=== PATIENT | female | born 1930 | race Caucasian/White ===

== ENCOUNTER 2016-08-13 06:55 | Inpatient (IN) | payer OTHER ==
[~2016-08-13 06:55] MED LIST: ceFAZolin 2 GM/DEXTROSE 100 ML IV ONE
[2016-08-13] MEDS ORDERED: LIDOCAINE 1% 2 ML INJ ONE (07:41)
[2016-08-13] MEDS ORDERED: BUPIVACAINE 0.5% 30 ML SDV ONE ×2 (07:47→09:13)
[2016-08-13] MEDS ORDERED: PROPOFOL 200 MG/20 ML VIAL ONE (07:53)
[2016-08-13] MEDS ORDERED: fentaNYL 100 MCG/2 ML INJ ONE ×2 (07:53→11:40)
[2016-08-13] MEDS ORDERED: PROPOFOL/EMULSION 500 MG/50 ML BOTTLE IV ONE (09:08)
--- NOTE | 2016-08-13 09:45 | CPEKG ---
Heart Rate: 73 RR Interval: 822 P-R Interval: 212 QRSD Interval: 78 QT Interval: 424 QTC Interval: 468 P [place]: 74 QRS [place]: 14 T Wave [place]: 48 EKG Severity - NORMAL ECG - EKG Impression: SINUS RHYTHM EKG Impression: UNCHANGED IN COMPARISON TO PRIOR Electronically Signed By: Dev Jones 14-Aug-2016 09:26:15
[2016-08-13] MEDS ORDERED: HYDROmorphONE/DILAUDID 6 MG/30 ML PCA IV PRN (11:11)
[2016-08-13] MEDS ORDERED: NALOXONE HCL 0.4 MG/ML INJ IVP PRN (11:11)
[2016-08-13] MEDS ORDERED: oxyCODONE IR 5 MG TAB PO PRN (11:11)
[2016-08-13] MEDS ORDERED: ACETAMINOPHEN 325 MG TAB PO PRN (11:16)
--- NOTE | 2016-08-13 11:19 | POSTOPPROG ---
Post Op Note Date of Operation: 08/13/16 Surgeon: Owen Samuel Clinique Counter Manager: Marshall Soares de Guzman Anesthesia: GET(General Endotracheal) Pre-op Diagnosis: BKA stump osteomyelitis/chronic wound Procedure: L BKA revision Findings: ulcerated skin, some necrosis, poor blood flow Inf/Abcess present in the surg proc area at time of surgery?: Yes Depth: Deep Incisional (Fascial) EBL: Minimal Complications: none Specimen(s): bone and skin to path and for culture
[2016-08-13] MEDS: HYDROmorphONE/DILAUDID 2 MG TAB PO PRN ×2 (12:39→13:38)
[2016-08-13] MEDS: HYDROmorphONE/DILAUDID 1 MG/ML SYR IVP PRN ×2 (13:48→15:58)
[2016-08-14 06:26] LABS: HEMATOCRIT 26.4 % (38.0-47.0); HEMOGLOBIN 8.4 g/dL (12.6-16.3)
[2016-08-14 06:49] LABS: ANION GAP 7 mEq/L (8-16); CALCIUM 8.1 mg/dL (8.5-10.4); CARBON DIOXIDE 19 mEq/l (22-31); CHLORIDE 117 mEq/L (97-110); CREATININE 1.7 mg/dL (0.6-1.0); GLOMERULAR FILTRATION RATE 29; GLUCOSE 101 mg/dL (70-100); POTASSIUM 6.2 mEq/L (3.5-5.2); SODIUM 143 mEq/L (134-144)
--- NOTE | 2016-08-14 10:41 | SOAPPROG ---
SOAP Progress Note Assessment/Plan: Assessment/plan: 86 y/o female s/p left BKA revision 2/2 to osteomyelitis POD #1 Will return to change dressing. Add lidoderm patch. Transition from IV to PO pain medicines for longer lasting relief. DM, CRI. Cr 1.7 today. I do not have comparison. Will contact [facility] in [place] for recent lab values. Will consult hospitalist team. S: Reports pain is a 12/10. Doesn't want to get OOB 2/2 pain. Sleepy. Has not had a bowel movement or urinated yet. PE: gen: somnolent, but arousable and able to hold a conversation if spoken to chest: cta bilaterally cor: rrr abd: soft, non-tender, +BS ext: dressing with sanguinous shadowing 08/14/16 16:32 Objective: Vital Signs Temp Pulse Resp BP Pulse Ox 36.6 C 82 16 109/66 99 08/14/16 08:00 08/14/16 08:00 08/14/16 08:00 08/14/16 08:00 08/14/16 08:00 Microbiology 08/13/16 10:01 Gram Stain - Final Leg - Bone 08/13/16 10:01 Gram Stain - Final Leg - Tissue Laboratory Results 08/14/16 05:10 08/14/16 05:10 08/13/16 08/14/16 08/15/16 05:59 05:59 05:59 Intake Total 900 Output Total 465 Balance 435 ICD10 Worksheet Patient Problems: Problems Problem Status Onset 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
[2016-08-14] MEDS: LIDOCAINE 5% 1 EA PATCH TD SCH (12:22)
[2016-08-14] MEDS ORDERED: NS 1,000 ML IV ONE (12:49)
[2016-08-14] MEDS ORDERED: SODIUM BICARBONATE 50 MEQ/50 ML SYR IVP ONE (12:50)
[2016-08-14] MEDS ORDERED: SODIUM POLY SULF 15 GM/60 ML BOTTLE PO ONE (12:50)
[2016-08-14] MEDS ORDERED: LACTULOSE 20 GM/30 ML UDCUP PO PRN (12:51)
[2016-08-14] MEDS ORDERED: BISACODYL 10 MG SUPP PR PRN (12:51)
[2016-08-14] MEDS ORDERED: POLYETHYLENE GLYCOL 3350 17 GM PKT PO PRN (12:51)
[2016-08-14] MEDS ORDERED: LIDOCAINE 2% JELLY 5 ML TUBE TP PRN (12:53)
[2016-08-14] MEDS ORDERED: traZODone 50 MG TAB PO PRN (12:53)
[2016-08-14] MEDS ORDERED: ALBUTEROL 3 ML DEYVIAL IH PRN (12:53)
[2016-08-14] MEDS ORDERED: PROMETHAZINE HCL 25 MG TAB PO PRN (12:53)
[2016-08-14] MEDS ORDERED: COLLAGENASE 30 GM OINTMENT TP PRN (12:53)
[2016-08-14] MEDS ORDERED: FAMOTIDINE 20 MG TAB PO PRN (12:53)
--- NOTE | 2016-08-14 14:18 | PDGENHP ---
History and Physical - Chief Complaint Acute leg pain - History of Present Illness Primary service: Dr. Samuel Date of consultation: 08/14/2016 Reason for consultation: Acute kidney injury HPI: 86-year-old female presenting with acute leg pain located in the left lower extremity at the surgical stump site, characterized as a 05/2010 severe pain with associated blood soaked dressing, intermittent drowsiness, oliguria, constipation. The patient reports that prior to her surgery the area had not been painful. Her surgery was on 08/13 and that was the time of onset, duration has been persistent thereafter. The pain has been somewhat alleviated by 0.4 mg of IV Dilaudid which the patient received via COMPUTER SECURITY SPECIALIST earlier today. The delivery of this pain medication did result in somnolence as well as an SpO2 of 71% secondary to hypoventilation. The patient is hesitant to get onto a urinal , so she has had 1 episode urination on a bedpan. She has been constipated postoperatively. She reports that her urination was normal prior to her surgery , without any changes in color, consistency, sensation, frequency. Her oral intake of liquids has been poor postoperatively. Of note, the patient reports that she does not see any doctors and she has never seen a rn paralegal. History Information - Allergies/Home Medication List Allergies/Adverse Reactions: oxycodone HCl [From Percocet] Allergy (Unknown, Verified 06/19/11 19:46) NAUSEA IODINE Allergy (Mild, Uncoded 06/19/11 19:46) NAUSEA NARCOTICS Allergy (Mild, Uncoded 06/19/11 19:46) NAUSEA FISH Allergy (Unknown, Uncoded 06/19/11 19:46) Home Medications: Acetaminophen [Tylenol 325mg (*)] 650 mg PO Q4 PRN 08/09/16 [Last Taken 08/12/16 ] Famotidine [Pepcid] 40 mg PO DAILY PRN 08/09/16 [Last Taken 08/12/16] Lidocaine 2% Jelly [Lidocaine 2% Jelly (*)] 1 cyndi TP DAILY PRN 08/09/16 [Last Taken 08/12/16] Oxycodone HCl 5 mg PO Q4 PRN 08/09/16 [Last Taken 08/12/16] Promethazine HCl 25 mg PO Q6 PRN 08/09/16 [Last Taken 08/12/16] Promethazine HCl [Phenergan] 25 mg RC Q6 PRN 08/09/16 [Last Taken 08/12/16] Sennosides [Senokot 8.6mg (OTC)] 1 each PO BID PRN 08/09/16 [Last Taken 08/12/16 ] traZODone [traZODONE 50MG (*)] 50 mg PO HS PRN 08/09/16 [Last Taken 08/12/16] Albuterol [Proventil Neb] 3 ml IH Q4-6PRN PRN 08/10/16 [Last Taken Unknown] Aspirin [Aspirin 81mg (*)] 81 mg PO DAILY 08/10/16 [Last Taken 08/12/16] Carvedilol [Coreg (*)] 12.5 mg PO BIDMEAL 08/10/16 [Last Taken 08/12/16] Cholestyramine (with Sugar) [Cholestyramine Packet] 4 gm PO BID 08/10/16 [Last Taken 08/12/16] Escitalopram Oxalate [Lexapro] 10 mg PO DAILY 08/10/16 [Last Taken 08/12/16] Furosemide [Lasix 40 MG (*)] 40 mg PO DAILY 08/10/16 [Last Taken 08/12/16] Gabapentin [Neurontin 300 MG (*)] 300 mg PO DAILY 08/10/16 [Last Taken 08/12/16] Gabapentin [Neurontin 300 MG (*)] 600 mg PO HS 08/10/16 [Last Taken 08/12/16] Herbals/Supplements -Info Only 1 ea PO DAILY 08/10/16 [Last Taken 08/12/16] Insulin Glargine [Lantus 100 UNITS/ML (*)] 18 units SC DAILY 08/10/16 [Last Taken 08/12/16] Levothyroxine [Synthroid 112 mcg (*)] 112 mcg PO DAILY06 08/10/16 [Last Taken ] Losartan Potassium [Cozaar 50 mg (*)] 100 mg PO DAILY 08/10/16 [Last Taken 08/12] amLODIPine BESYLATE [Norvasc 2.5 mg (*)] 2.5 mg PO HS 08/10/16 [Last Taken 08/12] Collagenase [Santyl (*)] 1 cyndi TP DAILY PRN 08/13/16 [Last Taken Unknown] Insulin Aspart [Novolog Flexpen] 3 unit SQ DAILY@11 08/14/16 [Last Taken ] Insulin Aspart [Novolog Flexpen] 5 unit SQ BID@,08/14/16 [Last Taken ] I have personally reviewed and updated: family history, medical history, social history, surgical history - Past Medical History Additional medical history: Peripheral vascular disease. Diabetes mellitus type 2. TIA. CHF, unclear type. Neuropathy on gabapentin. Iron deficient anemia. Osteomyelitis/gangrene. Pleural effusions and pulmonary edema. Chronic hypoxic respiratory failure - Surgical History Additional surgical history: Left BKA revision on 08/13/2016. Right BKA in 2011 complicated by pleural effusions, requiring thoracentesis. Right femoral angioplasty. . Appendectomy. Hiatal hernia repair. Left TMA - Family History Additional family history: Patient reports no sick family contacts recently - Social History Smoking Status: Never smoked Alcohol Use: None Drug Use: None Additional social history: Patient has been residing in out of [facility], her also lives in [place] [facility] Review of Systems ROS: 10pt was reviewed & negative except for what was stated in HPI & below Constitutional: Reports: other (Severe pain) Gastrointestinal: Reports: constipation Genitourinary: Reports: other (Oliguria) Neurological: Reports: other (Somnolent) Physical Exam Temp Pulse Resp BP Pulse Ox 37.1 C 82 16 95/59 L 97 08/14/16 11:50 08/14/16 11:50 08/14/16 11:50 08/14/16 11:50 08/14/16 11:50 O2 (L/minute) 3 Constitutional: chronically ill appearing, obese, uncomfortable, No no apparent distress, No not in pain (Severe pain) Eyes: anicteric sclera, other (Constricted pupils) Ears, Nose, Mouth, Throat: hearing normal, other (Tacky mucous membranes) Cardiovascular: systolic murmur (2/6 systolic murmur at the sternum), No irregularly irregular, No tachycardia, No edema Respiratory: reduced air movement (Bilateral bases), No expiratory wheeze, No inspiratory crackles, No bronchial breath sounds, No respiratory distress Gastrointestinal: soft, non-tender abdomen, no palpable masses, No normoactive bowel sounds (Hypoactive bowel sounds), No distension Genitourinary: no bladder fullness, no bladder tenderness, other (No CVA tenderness) Neurologic: AAOx3, sensation intact bilaterally (Bilateral lower extremities), No facial droop Psychiatric: interacting appropriately, not anxious, not encephalopathic, thought process linear, other (Concentration 7/7), No agitated Lab Data & Imaging Review 08/14/16 05:10 08/14/16 05:10 Hgb 8.4 g/dL (12.6-16.3) L 08/14/16 05:10 Hct 26.4 % (38.0-47.0) L 08/14/16 05:10 Sodium 143 mEq/L (134-144) 08/14/16 05:10 Potassium 6.2 mEq/L (3.5-5.2) H 08/14/16 05:10 Chloride 117 mEq/L (97-110) H 08/14/16 05:10 Carbon Dioxide 19 mEq/l (22-31) L 08/14/16 05:10 Anion Gap 7 mEq/L (8-16) L 08/14/16 05:10 BUN 38 mg/dL (7-23) H 08/14/16 05:10 Creatinine 1.7 mg/dL (0.6-1.0) H 08/14/16 05:10 Estimated GFR 29 08/14/16 05:10 Glucose 101 mg/dL (70-100) H 08/14/16 05:10 POC Glucose 192 mg/dL (70-100) H 08/14/16 11:11 Calcium 8.1 mg/dL (8.5-10.4) L 08/14/16 05:10 Visualized and Interpreted EKG results: Yes EKG Interpretation: Positive for: other (Normal sinus rhythm without peak T- waves) Assessment & Plan Assessment: 86-year-old female presenting with peripheral vascular disease and corynebacterium osteomyelitis, postop day 1 from left BKA revision complicated by acute kidney injury, acute hyperkalemia Plan: 1. Acute kidney injury. Acute, new problem this provider, further workup indicated. Oliguric, suspect secondary to hypovolemia in the setting of recent surgery and poor oral intake -rule out obstructive pathology with renal ultrasound and bladder ultrasound -get fractional excretion of sodium -get spot urine protein to determine whether there is evidence of chronicity -give 1 L normal saline bolus and then normal saline at 100 cc/hour thereafter -repeat serum chemistry at 6:00 p.m. to gauge whether there has been improvement -encourage oral intake -avoid nonsteroidal anti-inflammatory medications -provided low doses of pain medications as these will accumulate in her system and exacerbate somnolence 2. Hyperkalemia. Acute, secondary to acute kidney injury, treat condition as outlined above -provide 1 amp of sodium bicarb, give 30 g of Kayexalate -continue normal saline -repeat serum chemistry at 6:00 p.m. and if potassium is rising, will dose with higher amounts of Kayexalate, sodium bicarb, consult with Nephrology -repeat EKG at 6:00 p.m. if potassium level is rising -place on telemetry to monitor for arrhythmias 3. Chronic hypoxic respiratory failure. Patient is chronically on supplemental oxygen, continue to monitor her O2 requirements 4. Chronic CHF. No evidence of acute exacerbation, reviewed outside records including 08/15/2011 discharge summary by Juliana hoyt reported that patient experienced pulmonary edema and effusions with her last hospitalization for BKA requiring extended hospitalization for IV Lasix as well as Lasix in the outpatient setting -get outside records from [facility] to determine whether patient's CHF is systolic versus diastolic, baseline creatinine level -hold beta-nayeli while we are treating her acute kidney injury -hold ARB and Lasix 5. Peripheral vascular disease. Chronic, currently holding patient's aspirin postoperatively given her ongoing bleeding at the stump site 6. Iron deficient anemia. Chronic, normal MCV, hemoglobin level 8.4, baseline level between 7.8 and 9.7 -continue to monitor hemoglobin level in the setting of active blood loss at the surgical site 7. Osteomyelitis. Secondary to corynebacterium on bone culture, the area has been surgically removed which is the definitive treatment -hold on Infectious Disease consultation at this time, can proceed at the direction of the primary surgical service if desired The Hospital Medicine service will continue to consult in this patient's care on a daily basis; I discussed with hospitalist Fernanda Gunderson, she will be the rounding provider tomorrow.
[2016-08-14 15:11] LABS: BASE EXCESS -12.9 mEq/L (-2.5-2.5); BICARBONATE 15 mEq/L (22-26); MEASURED OXYGEN SATURATION 98 % (92-95); PCO2 45 mmHg (34-38); PO2 125 mmHg (65-75); TCO2 16 mEq/L (23-27)
[2016-08-14] MEDS: HEPARIN 5,000 UNIT/0.5 ML SYR SC SCH ×2 (15:16→23:23)
[2016-08-14 15:19] LABS: % IMMATURE GRANULYOCYTES 0.3 % (0.0-1.1); ABSOLUTE IMMATURE GRANULOCYTES 0.03 10^3/uL (0.00-0.10); ADD DIFF? NO; ADD MORPH? NO; ADD SCAN? NO; ATYPICAL LYMPHOCYTE FLAG 40 (0-99); FRAGMENT RBC FLAG 0 (0-99); HEMOGLOBIN 8.9 g/dL (12.6-16.3); LEFT SHIFT FLG 0 (0-99); LIPEMIA HEMOLYSIS FLAG 70 (0-99); MEAN CELL HEMOGLOBIN 31.6 pg (27.9-34.1); MEAN CELL HEMOGLOBIN CONCENTR. 29.7 g/dL (32.4-36.7); MEAN CELL VOLUME 106.4 fL (81.5-99.8); PLATELET CLUMPS FLAG 20 (0-99); PLATELET COUNT 157 10^3/uL (150-400); RED BLOOD CELL COUNT 2.82 10^6/uL (4.18-5.33); RED CELL DISTRIBUTION WIDTH 14.5 % (11.5-15.2)
--- NOTE | 2016-08-14 15:21 | HOSPPROG ---
Hospitalist Progress Note Assessment/Plan: STAT team called for further evaluation @ 14:45/ patient was pale, nonresponsive , diaphoretic. Patient has s/p revision of her left stump. Hospitalist team consulted earlier. patient was bag-masked with improvement of O2/ lung sounds course/ she will awaken with sternal rub. Patient is hyperkalemic, acidotic/ was given bicarb and kayexelate earlier/ ABG, chemistry, CBC, EKG all ordered stat. She was given Narcan with improvement, awakens and has no focal neuro deficits. Prelim report of abg shows significant acidosis/ tx to ICU. >40 minutes of critical care time spent. 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
[2016-08-14 15:48] LABS: ALANINE AMINOTRANSFERASE 29 IU/L (9-52); ALBUMIN 3.1 g/dL (3.5-5.0); ALKALINE PHOSPHATASE 104 IU/L (38-126); ANION GAP 10 mEq/L (8-16); ASPARTATE AMINOTRANSFERASE 56 IU/L (14-46); BILIRUBIN,TOTAL 0.6 mg/dL (0.1-1.4); CALCIUM 7.9 mg/dL (8.5-10.4); CARBON DIOXIDE 15 mEq/l (22-31); CHLORIDE 119 mEq/L (97-110); GLOMERULAR FILTRATION RATE 24; GLUCOSE 184 mg/dL (70-100); SODIUM 144 mEq/L (134-144); TOTAL PROTEIN 6.4 g/dL (6.3-8.2)
--- NOTE | 2016-08-14 15:51 | CPEKG ---
Heart Rate: 83 RR Interval: 723 P-R Interval: 212 QRSD Interval: 84 QT Interval: 416 QTC Interval: 489 P [place]: 39 QRS [place]: 34 T Wave [place]: -44 EKG Severity - ABNORMAL ECG - EKG Impression: SINUS RHYTHM EKG Impression: LOW VOLTAGE THROUGHOUT EKG Impression: BORDERLINE R WAVE PROGRESSION, ANTERIOR LEADS EKG Impression: BORDERLINE PROLONGED QT INTERVAL EKG Impression: NON SPECIFIC ST/T WAVE CHANGES THROUGHOUT Electronically Signed By: Dev Jones 14-Aug-2016 16:45:21
[2016-08-14 15:53] LABS: POTASSIUM 6.6 mEq/L (3.5-5.2)
[2016-08-14] MEDS ORDERED: PROPOFOL/EMULSION 500 MG/50 ML BOTTLE IV ONE (15:54)
[2016-08-14 15:58] LABS: TROPONIN I 0.162 ng/mL (0-0.034)
[2016-08-14] MEDS ORDERED: MIDAZOLAM 2 MG/2 ML VIAL IVP ONE ×2 (15:58→16:15)
[2016-08-14] MEDS ORDERED: SUCCINYLCHOLINE CHLORIDE 200 MG/10 ML VIAL IVP ONE (15:58)
[2016-08-14] MEDS ORDERED: fentaNYL/NACL 100 ML IV SCH (16:30)
[2016-08-14] MEDS ORDERED: ALTEPLASE 2 MG VIAL IVP PRN (16:41)
--- NOTE | 2016-08-14 16:43 | GPN ---
[f rep st] PROCEDURE NOTE REASON FOR INTUBATION: Respiratory failure. ANESTHESIA GIVEN: She was given Versed 2 mg. She was also given succinylcholine 50 mg. Procedure was performed in the emergency room with continuous pulse ox, EKG, and blood pressure monitoring. PROCEDURE: Patient was intubated with a #7.5 endotracheal tube and taped at 22 cm at the lip. Glid eScope was used throughout the procedure. Tracheal position was confirmed via capnograph. Patient tolerated the procedure well. There were no apparent complications. Portable chest x-ray has been called for. /[id number]/MODL
[2016-08-14] MEDS ORDERED: MIDAZOLAM 2 MG/2 ML VIAL ONE (16:45)
--- NOTE | 2016-08-14 16:48 | GPN ---
[f rep st] PROCEDURE NOTE PROCEDURE: Fiberoptic bronchoscopy. INDICATION: Possible mucous plugging. ANESTHESIA GIVEN: Patient was sedated from intubation. DESCRIPTION OF PROCEDURE: Bronchoscope was entered through a #7.5 endotracheal tube. Trachea and c michael were visualized and showed no endobronchial lesion and normal-appearing mucosa. Bronchoscope was entered in the left lung. Left upper lobe, lingula, and left lower lobe including subsegments, were subsequently visualized and showed no endobronchial lesion and normal-appearing mucosa. Bronch oscope was entered in the right lung. Right upper lobe, right middle lobe, and right lower lobe, in cluding subsegments, were subsequently visualized and showed no endobronchial lesion and normal-appe aring mucosa. There was no mucous plugging present. Patient tolerated the procedure well. There were no apparent complications. Portable chest x-ray w as called for. /[id number]/MODL
--- NOTE | 2016-08-14 16:51 | SOAPPROG ---
SOAP Progress Note Assessment/Plan: Assessment/plan: 86 y/o female s/p left BKA revision 2/ to osteomyelitis POD #1 Stat team called this afternoon. Patient nonresponsive, pale, and diaphoretic. Hypoxic. More alert after narcan. Now intubated and transferred to ICU. BKA stump revision dressing is dry. Seen by myself and Dr. Carrasco at stat calling. Appreciate hospitalist and metal handler management. Will call patient's son Mario. Patient's recently . 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
[2016-08-14] MEDS: AMPICILLIN/SULBACTAM 1.5 GM in NS 50 ML IV SCH ×2 (16:57→16:59)
--- NOTE | 2016-08-14 16:58 | GCON ---
[f rep st] CONSULTATION PROJECT HIRE CONSULTATION REASON FOR CONSULTATION: Respiratory failure. HISTORY OF PRESENT ILLNESS: The patient is a very pleasant 86-year-old white female with an extensi ve past medical history, including peripheral vascular disease, diabetes, congestive heart failure, TIA, peripheral neuropathy, osteomyelitis, pleural effusions, pulmonary edema, and chronic respirato ry failure for which she is on home oxygen. She was admitted on 08/14/2016 for a left BKA revision secondary to osteomyelitis. She was found to have renal failure at that time. However, this aftern oon she began having worsening respiratory failure. She was taken to the emergency room secondary t o there were no beds in the intensive care unit, where she was intubated and placed on mechanical ve ntilation. Currently, she is stable on mechanical ventilation. All history is gleaned from the [employer] record. PAST MEDICAL HISTORY: Again significant for peripheral vascular disease, diabetes, congestive heart failure, neuropathy, osteomyelitis, recurrent pleural effusions, pulmonary edema, chronic hypoxic f ailure. PAST SURGICAL HISTORY: She has had a left BKA revision recently, right BKA in 2011. She has had mu ltiple pleural effusions requiring thoracentesis. She had a right femoral angioplasty, , a ppendectomy, and hiatal hernia repair. SOCIAL HISTORY: No history of tobacco use. No history of alcohol use. 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 She is . She resides at [facility]. MEDICATIONS: Reviewed and are extensive. ALLERGIES: Include oxycodone, iodine, narcotics, and fish. PHYSICAL EXAM: VITAL SIGNS: Blood pressure 108/47, pulse 83, respirations 12, temperature 37.1, ox ygen saturation 100% on 15 L. GENERAL: She is a moderately overweight elderly white female who is in moderate respiratory distress. HEENT: Eyes: ALE. EOMI. Throat shows no erythema or tonsilla r hypertrophy. NECK: Supple. No cervical adenopathy. HEART: Regular rate and rhythm with a 2/6 systolic murmur in the left sternal border without radiation. LUNGS: Diminished breath sounds, pre dominantly on the right. There are no E to A changes. There is some semblance of dullness to percu ssion. ABDOMEN: Soft, nontender. Bowel sounds are present. EXTREMITIES: No clubbing, cyanosis, or edema. LABORATORIES: White count is 9.9, hemoglobin of 8.9, hematocrit 30, platelet count is 157. Sodium 144, potassium 6.6, chloride 119, CO2 is 15, BUN 39, creatinine 2, glucose is 184. Arterial blood g as: pH 7.15, pCO2 of 45, PO2 of 125, bicarb of 16, oxygen saturation 98%. Chest x-ray shows bilateral alveolar opacifications. There is a probable right pleural effusion. IMPRESSION: 1. Acute respiratory failure, etiology of which is unclear, although may be a combination of pneumo junior plus pleural effusion. 2. Probable pneumonia. This is likely aspiration. 3. Congestive heart failure. 4. Recurrent pleural effusions. 5. Diabetes. 6. Status post BKA revision. 7. Congestive heart failure. 8. History of osteomyelitis. 9. Chronic hypoxic respiratory failure. 10. Peripheral vascular disease. PLAN: 1. The patient has been admitted to perform fiberoptic bronchoscopy as soon as possible. 2. DVT and PE prophylaxis. 3. Stress ulcer prophylaxis. 4. Aggressive blood sugar control. 5. We will check an echocardiogram. 6. We will have a thoracentesis performed. 7. Adequate sedation. 8. Possible sepsis protocol. /[id number]/MODL
[2016-08-14 18:01] LABS: COLOR YELLOW; LEUKOCYTE ESTERASE,URINE NEGATIVE (NEGATIVE); NITRITE,URINE NEGATIVE (NEGATIVE)
[2016-08-14 18:03] LABS: BICARBONATE 16 mEq/L (22-26); MEASURED OXYGEN SATURATION 100 % (92-95); PCO2 34 mmHg (34-38); PO2 167 mmHg (65-75); TCO2 17 mEq/L (23-27)
[2016-08-14 18:04] LABS: END TIDAL CO2 38; O2 CONCENTRATIION 80 % (0-100); P/F RATIO 209 RATIO; PATIENT RATE 14; PRESSURE SUPPORT 7; SIMV YES
[2016-08-14 18:11] LABS: AMORPHOUS PRESENT /hpf (NONE-1+); BACTERIA TRACE /hpf (NONE SEEN); MUCUS TRACE /lpf (NONE-1+)
[2016-08-14] MEDS ORDERED: SODIUM POLY SULF 15 GM/60 ML BOTTLE PR ONE (18:25)
[2016-08-14] MEDS: PIPERACILLIN/TAZO 2.25 GM/DEX 50 ML IV SCH ×3 (18:28→23:31)
[2016-08-14] MEDS: INSULIN LISPRO 100 UNIT/ML SC SCH (18:29)
[2016-08-14] MEDS: AZITHROMYCIN IV 500 MG in D5W 250 ML IV SCH (18:29)
[2016-08-14] MEDS ORDERED: SODIUM BICARBONATE 150 MEQ in D5W 1,000 ML IV SCH (18:30)
[2016-08-14] MEDS: PROPOFOL/EMULSION 100 ML IV SCH (20:00)
[2016-08-14 22:05] LABS: ANION GAP 10 mEq/L (8-16); CALCIUM 7.9 mg/dL (8.5-10.4); CARBON DIOXIDE 19 mEq/l (22-31); CHLORIDE 116 mEq/L (97-110); CREATININE 1.8 mg/dL (0.6-1.0); GLOMERULAR FILTRATION RATE 27; GLUCOSE 151 mg/dL (70-100); LACTATE DEHYDROGENASE 483 IU/L (313-618); POTASSIUM 4.5 mEq/L (3.5-5.2); SODIUM 145 mEq/L (134-144)
[2016-08-14] MEDS: SENNOSIDES/DOCUSATE SODIUM TAB PO SCH (22:09)
[2016-08-14] MEDS: CHOLESTYRAMINE/SUCROSE 4 GM PKT PO SCH (22:09)
[2016-08-14] MEDS: GABAPENTIN 300 MG CAP PO SCH (22:09)
[2016-08-14] MEDS ORDERED: METOPROLOL TARTRATE 5 MG/5 ML INJ IVP ONE (22:21)
[2016-08-14] MEDS ORDERED: ASPIRIN EC 325 MG TAB PO SCH ×2 (22:30→23:00)
[2016-08-14] MEDS: FAMOTIDINE 20 MG/NACL 50 ML IV SCH (22:37)
[2016-08-14] MEDS: CHLORHEXIDINE GLUCONATE 15 ML UDL PO SCH (22:37)
[2016-08-14] MEDS: PATCH REMOVAL 1 EA PATCH TD SCH (22:37)
[2016-08-14] MEDS: ASPIRIN 325 MG TAB PO SCH (23:30)
[2016-08-15 03:57] LABS: % IMMATURE GRANULYOCYTES 0.4 % (0.0-1.1); ABSOLUTE IMMATURE GRANULOCYTES 0.03 10^3/uL (0.00-0.10); ADD DIFF? NO; ADD MORPH? NO; ADD SCAN? NO; ATYPICAL LYMPHOCYTE FLAG 40 (0-99); FRAGMENT RBC FLAG 0 (0-99); HEMATOCRIT 23.5 % (38.0-47.0); HEMOGLOBIN 7.7 g/dL (12.6-16.3); LEFT SHIFT FLG 10 (0-99); LIPEMIA HEMOLYSIS FLAG 80 (0-99); MEAN CELL HEMOGLOBIN 31.4 pg (27.9-34.1); MEAN CELL HEMOGLOBIN CONCENTR. 32.8 g/dL (32.4-36.7); MEAN CELL VOLUME 95.9 fL (81.5-99.8); MEAN PLATELET VOLUME 10.3 fL (8.7-11.7); PLATELET CLUMPS FLAG 0 (0-99); PLATELET COUNT 140 10^3/uL (150-400); RED BLOOD CELL COUNT 2.45 10^6/uL (4.18-5.33); RED CELL DISTRIBUTION WIDTH 14.2 % (11.5-15.2)
[2016-08-15 04:06] LABS: INR 1.32 (0.83-1.16); PROTIME(PATIENT) 16.4 SEC (12.0-15.0)
[2016-08-15 04:07] LABS: APTT 38.2 SEC (23.0-38.0)
[2016-08-15 04:21] LABS: BASE EXCESS -4.2 mEq/L (-2.5-2.5); BICARBONATE 20 mEq/L (22-26); MEASURED OXYGEN SATURATION 81 % (92-95); PCO2 32 mmHg (34-38); PO2 45 mmHg (65-75); TCO2 21 mEq/L (23-27)
[2016-08-15 04:24] LABS: O2 CONCENTRATIION 40 % (0-100); P/F RATIO 113 RATIO; PATIENT RATE 12; PRESSURE SUPPORT 7; SIMV YES
[2016-08-15 04:53] LABS: ANION GAP 8 mEq/L (8-16); CALCIUM 7.9 mg/dL (8.5-10.4); CARBON DIOXIDE 19 mEq/l (22-31); CHLORIDE 117 mEq/L (97-110); CHOLESTEROL 87 mg/dL (140-220); CHOLESTEROL/HDL RATIO 3.11 RATIO (1.00-4.44); CREATININE 1.6 mg/dL (0.6-1.0); GLOMERULAR FILTRATION RATE 31; GLUCOSE 106 mg/dL (70-100); HIGH DENSITY LIPOPROTEIN 28 mg/dL (40-85); LDL/HDL RATIO 1.36 RATIO (1.00-3.22); LOW DENSITY LIPOPROTEIN 38 mg/dL (80-100); NON-HIGH DENSITY LIPOPROTEIN 59 mg/dL (90-129); SODIUM 144 mEq/L (134-144); TRIGLYCERIDE 108 mg/dL (35-135); VERY LOW DENSITY LIPOPROTEINS 21 mg/dL (8-25)
[2016-08-15] MEDS ORDERED: FUROSEMIDE 20 MG/2 ML VIAL IVP ONE (05:21)
[2016-08-15] MEDS: PIPERACILLIN/TAZO 2.25 GM/DEX 50 ML IV SCH ×3 (05:32→17:52)
[2016-08-15] MEDS: HEPARIN 5,000 UNIT/0.5 ML SYR SC SCH ×3 (05:32→23:28)
[2016-08-15] MEDS: LEVOTHYROXINE 112 MCG TAB PO SCH ×2 (05:33→05:45)
[2016-08-15] MEDS: PROPOFOL/EMULSION 100 ML IV SCH ×2 (05:45→22:00)
[2016-08-15] MEDS: CHLORHEXIDINE GLUCONATE 15 ML UDL PO SCH ×2 (08:15→20:20)
[2016-08-15] MEDS: FAMOTIDINE 20 MG/NACL 50 ML IV SCH ×2 (08:15→21:38)
[2016-08-15] MEDS: LIDOCAINE 5% 1 EA PATCH TD SCH (08:16)
[2016-08-15] MEDS: GABAPENTIN 100 MG CAP PO SCH (08:16)
[2016-08-15] MEDS: ASPIRIN 325 MG TAB PO SCH (08:16)
[2016-08-15] MEDS: ESCITALOPRAM OXALATE 10 MG TAB PO SCH (08:16)
[2016-08-15] MEDS: INSULIN LISPRO 100 UNIT/ML SC SCH ×3 (08:34→18:00)
[2016-08-15] MEDS: CHOLESTYRAMINE/SUCROSE 4 GM PKT PO SCH ×2 (08:35→21:38)
[2016-08-15 08:47] LABS: CALCULATED OXYGEN SATURATION 99 % (92-95)
[2016-08-15] MEDS: AZITHROMYCIN IV 500 MG in D5W 250 ML IV SCH (08:49)
[2016-08-15] MEDS: SENNOSIDES/DOCUSATE SODIUM TAB PO SCH ×2 (09:00→21:38)
[2016-08-15] MEDS ORDERED: Herbals/Supplements -Info Only PO SCH (09:00)
--- NOTE | 2016-08-15 09:07 | PDINTPN ---
Solar Pool Heating Installer Progress Note Assessment/Plan: Assessment/Plan: * Acute resp failure-stable on vent. -will hold off weaning until after thoracentesis * Lg Right Pleural effusion- -thoracentesis today * CHF-ECHO pending * DM-JESSICA paniagua * PVD * S/P revision of BKA * Cdif * Anemia * VTE proph * Stress ulcer proph 35 min critical care time spent with patient Case discussed with RT and nursing Subjective: Sedated Objective: Vital Signs Temp Pulse Resp BP Pulse Ox 36.6 C 61 12 117/39 L 100 08/15/16 08:00 08/15/16 08:00 08/15/16 08:00 08/15/16 08:00 08/15/16 08:00 Microbiology 08/13/16 10:01 Gram Stain - Final Leg - Bone 08/13/16 10:01 Gram Stain - Final Leg - Tissue Laboratory Results 08/15/16 03:51 08/15/16 03:51 08/14/16 08/15/16 08/16/16 05:59 05:59 05:59 Intake Total 900 1043.3 Output Total 465 475 450 Balance 435 568.3 -450 PT 16.4 SEC (12.0-15.0) H 08/15/16 03:51 INR 1.32 (0.83-1.16) H 08/15/16 03:51 Laboratory Results 08/15/16 03:51 08/15/16 03:51 08/15/16 08/15/16 08/15/16 08:28 03:51 03:51 PT 16.4 SEC H SEC (12.0 - 15.0) INR 1.32 H (0.83 - 1.16) APTT 38.2 SEC H SEC (23.0 - 38.0) Patient Temperature 36.6 DEGREES DEGREES pCO2 29 mmHg L mmHg (34 - 38) pO2 134 mmHg H mmHg (65 - 75) Total CO2 22 mEq/L L mEq/L (23 - 27) Base Excess -3.0 mEq/L L mEq/L (-2.5 - 2.5) ABG pH 7.46 H (7.35 - 7.45) ABG HCO3 21 mEq/L L mEq/L (22 - 26) ABG O2 Sat (Calculated) 99 % H % (92 - 95) Calcium 7.9 mg/dL L mg/dL (8.5 - 10.4) Troponin I 2.020 ng/mL H ng/mL (0 - 0.034) Triglycerides 108 mg/dL mg/dL (35 - 135) Cholesterol 87 mg/dL L mg/dL (140 - 220) Cholesterol Risk Factr 0.5 (0.2 - 1.0) LDL Cholesterol, Calc 38 mg/dL L mg/dL (80 - 100) LDL Risk Factor 0.5 (0.2 - 1.0) VLDL Cholesterol 21 mg/dL mg/dL (8 - 25) Non-HDL Cholesterol 59 mg/dL L mg/dL (90 - 129) HDL Cholesterol 28 mg/dL L mg/dL (40 - 85) LDL/HDL Ratio 1.36 RATIO RATIO (1.00 - 3.22) Cholesterol/HDL Ratio 3.11 RATIO RATIO (1.00 - 4.44) C. difficile Tox (PCR) 08/15/16 01:55 PT INR APTT Patient Temperature pCO2 pO2 Total CO2 Base Excess ABG pH ABG HCO3 ABG O2 Sat (Calculated) Calcium Troponin I Triglycerides Cholesterol Cholesterol Risk Factr LDL Cholesterol, Calc LDL Risk Factor VLDL Cholesterol Non-HDL Cholesterol HDL Cholesterol LDL/HDL Ratio Cholesterol/HDL Ratio C. difficile Tox (PCR) POSITIVE H CXR-reviewed by myself. ETT low. Large right effusion - Time Spent With Patient Time Spent With Patient: 35 Physical Exam - Physical Exam General Appearance: other (sedated), No alert EENT: PERRL/EOMI, normal ENT inspection, ET tube Neck: non-tender, full range of motion, supple, normal inspection Respiratory: crackles (right), No respiratory distress, No stridor, No wheezing Cardiac/Chest: normal peripheral pulses, regular rate, rhythm Peripheral Pulses: 2+: carotid (R), carotid (L), femoral (R), femoral (L), dorsalis-pedis (R), dorsalis-pedis (L) Abdomen: normal bowel sounds, non-tender, soft Pelvic Exam: deferred Rectal: deferred Skin: normal color, warm/dry Neuro/Psych: No alert ICD10 Worksheet Patient Problems: Problems Problem Status Onset C. 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
--- NOTE | 2016-08-15 09:20 | ECHO ---
[id number] + + [address] : : [place] [address] : : [phone] + + Adult Echocardiographic Report + -+ :Name: JUNIOR ROMO KStudy Date: 08/14/2016 04:58 PM BP: 131/57 mmHg : : Hospital Admission Number: [id number] : :: 1930 Gender: Female Height: 60 in : :Age: 86 yrs Race: WH Weight: 153 lb : :Reason For Study: STAT for lvfx : : BSA: 1.7 meters 2: :History: STAT for systolic function : + -+ MMode/2D Measurements \T\ Calculations IVSd: 0.97 cm LVIDd: 4.6 cm FS: 20.1 % Ao root diam: 2.4 cm LVPWd: 0.88 cm LVIDs: 3.7 cm EDV(Teich): 96.6 ml ESV(Teich): 56.7 ml EF(Teich): 41.2 % LVOT diam: 1.9 cm LVOT area: 2.7 cm2 Normal Measurement Values: + + :LVIDd (3.5-5.7cm) IVSd (0.6-1.1cm) LVPWd (0.6-1.1cm) Aortic Root (2.0-3.7cm)Left Atrium (1.5-4.0cm): :LV Vol(d) (76-115ml) LV Vol(s) (29-48ml) Ejec Fraction (50-65%)PV Robert (0.6- 1.2m/s) TV Robert (0.4-1.0m/s) : :MV E Robert (0.8-1.0m/s)MV A Robert (0.3-1.0m/s)LVOT Robert (0.7-1.2m/s) Asc Ao Robert ( 0.9-1.8m/s) : + + Doppler Measurements \T\ Calculations MV E max robert: Ao mean PG: LV V1 max: SV(LVOT): 119.4 cm/sec 17.3 mmHg 79.0 cm/sec 49.7 ml MV A max robert: Ao V2 mean: LV V1 max P.7 cm/sec 197.0 cm/sec 2.5 mmHg MV E/A: 1.2 Ao V2 VTI: 62.4 cm LV V1 mean PG: MV dec time: 0.15 sec 1.4 mmHg ESTRELLA(I,D): 0.80 cm2 LV V1 mean: 57.2 cm/sec LV V1 VTI: 18.1 cm PA V2 max: 64.0 cm/sec PA max P.6 mmHg Left Ventricle The left ventricle is normal in size. There is borderline concentric left ventricular hypertrophy. Left ventricular systolic function is mildly reduced. Cannot rule out RWMA / Technically limited study. Consider repeating when the patient is mobile. Right Ventricle The right ventricle is normal in size and function. Atria The left atrial size is normal. Right atrial size is normal. Mitral Valve The mitral valve leaflets appear thickened, but open well. There is no mitral valve stenosis. There is moderate mitral regurgitation. Tricuspid Valve The tricuspid valve is normal in structure and function. There is no tricuspid stenosis. There is trace to mild tricuspid regurgitation. Aortic Valve Most likely trileaflet aortic valve with moderate calcification and restricted mobility. Low flow aortic stenosis. NDSI=.29 indicating at least moderate even though mean gradient is only 17mmHg. Trace aortic regurgitation. Pulmonic Valve The pulmonic valve is not well visualized. Great Vessels The aortic root is normal size. Pericardium/Pleural trivial pericardial effusion. There is a large pleural effusion. Conclusion A two-dimensional transthoracic echocardiogram with M-mode and Doppler was performed. The study was technically difficult. There is borderline concentric left ventricular hypertrophy. Left ventricular systolic function is mildly reduced. There is moderate mitral regurgitation. There is trace to mild tricuspid regurgitation. Most likely trileaflet aortic valve with moderate calcification and restricted mobility. Low flow aortic stenosis. NDSI=.29 indicating at least moderate even though mean gradient is only 17mmHg. Trace aortic regurgitation. trivial pericardial effusion. There is a large pleural effusion. Cannot rule out RWMA / Technically limited study. Consider repeating when the patient is mobile. Final Reading Physician: Chato Nichole signed on 08/15/2016 09:18 AM Ordering Physician: Dev Pretty Performed By: Luisa Solis
--- NOTE | 2016-08-15 10:30 | SOAPPROG ---
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 On vent. Large pleural effusion. Awaiting thoracentesis. 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 BKA stump redressed today. Some sanguinous drainage. Flaps viable. Seen and examined with Dr. Ramirez this am. S: sedated, on vent. squeezes my hand. does not open eyes. O: gen: sedated, on vent heent: pale pulm: decreased BS B, R>L cor: rrr abd: soft ext: B BKA's. Revision site with viable flaps and min sanguinous drainage 08/15/16 10:20 Objective: Vital Signs Temp Pulse Resp BP Pulse Ox 36.6 C 62 12 133/52 H 100 08/15/16 08:00 08/15/16 09:00 08/15/16 09:00 08/15/16 09:00 08/15/16 09:00 Microbiology 08/13/16 10:01 Gram Stain - Final Leg - Bone 08/13/16 10:01 Gram Stain - Final Leg - Tissue Laboratory Results 08/15/16 03:51 08/15/16 03:51 08/14/16 08/15/16 08/16/16 05:59 05:59 05:59 Intake Total 900 1043.3 Output Total 465 475 450 Balance 435 568.3 -450 PT 16.4 SEC (12.0-15.0) H 08/15/16 03:51 INR 1.32 (0.83-1.16) H 08/15/16 03:51 ICD10 Worksheet Patient Problems: Problems Problem Status Onset C. 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
[2016-08-15] MEDS ORDERED: PROCHLORPERAZINE MALEATE 25 MG SUPPR PR PRN (13:16)
[2016-08-15] MEDS ORDERED: LIDOCAINE 1% 30 ML SDV ONE (13:27)
[2016-08-15] MEDS ORDERED: NA BICARBONATE 50 MEQ/50 ML VIAL ONE (13:27)
[2016-08-15 16:27] LABS: LD, PLEURAL FLUID 166 IU/L
--- NOTE | 2016-08-15 17:10 | HOSPPROG ---
Hospitalist Progress Note Assessment/Plan: 86 yo F with hx of osteomyelitis of stump post bka s/p surgical revision now with AMS and acute hypoxic resp failure # acute hypoxic respiratory failure: sp intubation, suspect aspiration and aspiration pna in setting of AMS. Remains on vent. # aspiration PNA: treating with zosyn, cxr personally reviewed with large left pleural effusion and plan for thora today # acute encephalopathy: occurring post op and improved with narcan, now intubated and sedated, monitoring # chris: in setting of poor po intake and recent surgery, infection etc. Likely ATN, monitoring UOP. Hyperkalemia improved # agma: in setting of above, improved s/p bicarb gtt # nstemi: with trop increased to 2 and new wall motion abnormality on echo, likely largely demand related in setting of above but will need further ischemic w/u when stable # acute on chronic diastolic heart failure: some volume overload noted, has gotten lasix x 1 and monitoring volume status # anemia: slightly lower than baseline, monitoring # osteomyelits: corynebacterium, sp surgical revision of affected area # DM, PVD # IP status, critically ill FC Patient new to my care. Old records reviewed and summarized as above. rEviewec with Dr. Berrios and multidsicoplinary care team on [facility]. Subjective: patient intubated/sedated Objective: Vital Signs Temp Pulse Resp BP Pulse Ox 36.3 C 63 12 123/42 H 100 08/15/16 16:00 08/15/16 16:00 08/15/16 16:00 08/15/16 16:00 08/15/16 16:00 Microbiology 08/13/16 10:01 Gram Stain - Final Leg - Bone 08/13/16 10:01 Gram Stain - Final Leg - Tissue Laboratory Results 08/15/16 03:51 08/15/16 03:51 08/14/16 08/15/16 08/16/16 05:59 05:59 05:59 Intake Total 900 1043.3 Output Total 465 475 675 Balance 435 568.3 -675 PT 16.4 SEC (12.0-15.0) H 08/15/16 03:51 INR 1.32 (0.83-1.16) H 08/15/16 03:51 intubated sedated anicteric ett in place rrr no mrg coarse bs dec at bases soft nt nd trace ble edema warm dry well perfused sedated ICD10 Worksheet Patient Problems: Problems Problem Status Onset C. 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
[2016-08-15] MEDS: GABAPENTIN 300 MG CAP PO SCH (21:38)
[2016-08-15] MEDS: PATCH REMOVAL 1 EA PATCH TD SCH (23:28)
[2016-08-16] MEDS ORDERED: fentaNYL/NACL 100 ML IV SCH
[2016-08-16] MEDS: PIPERACILLIN/TAZO 2.25 GM/DEX 50 ML IV SCH ×4 (00:06→17:12)
[2016-08-16 04:29] LABS: % IMMATURE GRANULYOCYTES 0.4 % (0.0-1.1); ABSOLUTE IMMATURE GRANULOCYTES 0.04 10^3/uL (0.00-0.10); ADD DIFF? NO; ADD MORPH? NO; ADD SCAN? NO; ATYPICAL LYMPHOCYTE FLAG 20 (0-99); FRAGMENT RBC FLAG 0 (0-99); HEMATOCRIT 24.2 % (38.0-47.0); HEMOGLOBIN 7.8 g/dL (12.6-16.3); LEFT SHIFT FLG 0 (0-99); LIPEMIA HEMOLYSIS FLAG 80 (0-99); MEAN CELL HEMOGLOBIN 31.6 pg (27.9-34.1); MEAN CELL HEMOGLOBIN CONCENTR. 32.2 g/dL (32.4-36.7); MEAN PLATELET VOLUME 10.7 fL (8.7-11.7); PLATELET CLUMPS FLAG 0 (0-99); PLATELET COUNT 151 10^3/uL (150-400); RED BLOOD CELL COUNT 2.47 10^6/uL (4.18-5.33); RED CELL DISTRIBUTION WIDTH 14.1 % (11.5-15.2)
[2016-08-16 05:09] LABS: ANION GAP 8 mEq/L (8-16); CALCIUM 7.4 mg/dL (8.5-10.4); CARBON DIOXIDE 22 mEq/l (22-31); CHLORIDE 116 mEq/L (97-110); CREATININE 1.4 mg/dL (0.6-1.0); GLOMERULAR FILTRATION RATE 36; GLUCOSE 109 mg/dL (70-100); MAGNESIUM 1.5 mg/dL (1.6-2.3); POTASSIUM 3.6 mEq/L (3.5-5.2); SODIUM 146 mEq/L (134-144)
[2016-08-16] MEDS: LEVOTHYROXINE 112 MCG TAB PO SCH (06:08)
[2016-08-16] MEDS: HEPARIN 5,000 UNIT/0.5 ML SYR SC SCH ×3 (06:08→20:22)
[2016-08-16] MEDS: INSULIN LISPRO 100 UNIT/ML SC SCH ×3 (08:07→17:14)
[2016-08-16] MEDS: PROPOFOL/EMULSION 100 ML IV SCH (08:08)
[2016-08-16] MEDS: CHLORHEXIDINE GLUCONATE 15 ML UDL PO SCH ×2 (08:08→20:22)
[2016-08-16] MEDS: CHOLESTYRAMINE/SUCROSE 4 GM PKT PO SCH ×2 (08:11→19:44)
[2016-08-16] MEDS: FAMOTIDINE 20 MG/NACL 50 ML IV SCH ×2 (08:18→20:22)
[2016-08-16] MEDS: LIDOCAINE 5% 1 EA PATCH TD SCH (08:18)
[2016-08-16] MEDS: GABAPENTIN 100 MG CAP PO SCH (08:18)
[2016-08-16] MEDS: AZITHROMYCIN IV 500 MG in D5W 250 ML IV SCH (08:18)
[2016-08-16] MEDS: ASPIRIN 325 MG TAB PO SCH (08:18)
[2016-08-16] MEDS: SENNOSIDES/DOCUSATE SODIUM TAB PO SCH ×2 (08:18→19:45)
[2016-08-16] MEDS: ESCITALOPRAM OXALATE 10 MG TAB PO SCH (08:34)
--- NOTE | 2016-08-16 08:53 | PDINTPN ---
Squeegee Operator Progress Note Assessment/Plan: Assessment/Plan: * Acute resp failure-stable on vent. Likely ready for extubation, but difficult to assess with anxiety -start precedex * Lg Right Pleural effusion-improved after thoracentesis * PTX-post tap. Stable/smaller * Anxiety-start precedex * CHF-ECHO pending * DM-BS okay * PVD * S/P revision of BKA * Cdif * Anemia * VTE proph * Stress ulcer proph 35 min critical care time spent with patient Case discussed with RT and nursing Subjective: Awake. Anxious Objective: Vital Signs Temp Pulse Resp BP Pulse Ox 37.7 C 90 12 134/46 H 100 08/16/16 08:00 08/16/16 08:36 08/16/16 08:00 08/16/16 08:00 08/16/16 08:36 Microbiology 08/15/16 16:31 Gram Stain - Final Pleural Fluid - Aspirate 08/13/16 10:01 Gram Stain - Final Leg - Bone 08/13/16 10:01 Gram Stain - Final Leg - Tissue Laboratory Results 08/16/16 04:20 08/16/16 04:20 08/15/16 08/16/16 08/17/16 05:59 05:59 05:59 Intake Total 1043.3 1692 Output Total 475 1100 Balance 568.3 592 PT 16.4 SEC (12.0-15.0) H 08/15/16 03:51 INR 1.32 (0.83-1.16) H 08/15/16 03:51 Laboratory Results 08/16/16 04:20 08/16/16 04:20 08/16/16 08/15/16 04:20 16:31 Calcium 7.4 mg/dL L mg/dL (8.5 - 10.4) Phosphorus 3.4 mg/dL mg/dL (2.5 - 4.5) Magnesium 1.5 mg/dL L mg/dL (1.6 - 2.3) Fluid Meso/Macro/Mathews % 63 % % Fl Pathologist Review Pending Pleural Fluid Source PLEURAL Pleural Color STRAW Pleural Appearance SL. HAZY H Pleural pH 7.0 (6.8 - 7.6) Pleural WBC 161 /mm3 /mm3 Pleural RBC 101 /MM3 /MM3 Pleural Neutrophils 20 % % Pleural Lymphocytes % 17 % % Pleural Total Protein 3.5 g/dL g/dL Pleural LDH 166 IU/L IU/L Pleural Glucose 120 mg/dL H mg/dL (55 - 113) 08/13/16 10:01 Gram Stain - Final Leg - Tissue Anaerobic Culture - Preliminary Corynebacterium Striatum 08/13/16 10:01 Gram Stain - Final Leg - Bone Anaerobic Culture - Preliminary Corynebacterium Striatum CXR-PTX smaller. Effusion smaller Physical Exam - Physical Exam General Appearance: WD/WN, alert, mild distress EENT: PERRL/EOMI, normal ENT inspection, ET tube Neck: non-tender, full range of motion, supple Respiratory: crackles (right), No respiratory distress, No stridor, No wheezing Cardiac/Chest: normal peripheral pulses, regular rate, rhythm Peripheral Pulses: 2+: carotid (R), carotid (L), femoral (R), femoral (L), dorsalis-pedis (R), dorsalis-pedis (L) Abdomen: normal bowel sounds, non-tender, soft Pelvic Exam: deferred Rectal: deferred Skin: normal color, warm/dry Extremities: normal range of motion ICD10 Worksheet Patient Problems: Problems Problem Status Onset C. 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
[2016-08-16] MEDS ORDERED: DEXMEDETOMIDINE HCL 400 MCG in NS 100 ML IV SCH (09:00)
--- NOTE | 2016-08-16 10:00 | SOAPPROG ---
SOAP Progress Note Assessment/Plan: Assessment: 86yo female s/p left BKA revision resp failure -- possible extubation today Cdiff on contact precautions anemia stable pleural effusion s/p thoracentesis PE intubated Chest CTA B/L Left leg (dressing changed), stapled incision clean dry intact, no discharge Plan: saw pt with Dr Ramirez continue dressing changes 08/16/16 09:58 Objective: Vital Signs Temp Pulse Resp BP Pulse Ox 37.7 C 90 12 134/46 H 100 08/16/16 08:00 08/16/16 08:36 08/16/16 08:00 08/16/16 08:00 08/16/16 08:36 Microbiology 08/15/16 16:31 Gram Stain - Final Pleural Fluid - Aspirate 08/13/16 10:01 Gram Stain - Final Leg - Bone 08/13/16 10:01 Gram Stain - Final Leg - Tissue Laboratory Results 08/16/16 04:20 08/16/16 04:20 08/15/16 08/16/16 08/17/16 05:59 05:59 05:59 Intake Total 1043.3 1692 Output Total 475 1100 Balance 568.3 592 PT 16.4 SEC (12.0-15.0) H 08/15/16 03:51 INR 1.32 (0.83-1.16) H 08/15/16 03:51 ICD10 Worksheet Patient Problems: Problems Problem Status Onset C. 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
[2016-08-16 12:41] LABS: RANDOM URINE PROTEIN 71 mg/dL
[2016-08-16 13:33] LABS: BASE EXCESS -4.1 mEq/L (-2.5-2.5); BICARBONATE 20 mEq/L (22-26); CPAP YES; MEASURED OXYGEN SATURATION 99 % (92-95); PCO2 37 mmHg (34-38); PO2 128 mmHg (65-75); TCO2 22 mEq/L (23-27)
[2016-08-16 13:34] LABS: END TIDAL CO2 42; PATIENT RATE 17; PRESSURE SUPPORT 7
--- NOTE | 2016-08-16 15:58 | HOSPPROG ---
Hospitalist Progress Note Assessment/Plan: 86 yo F with hx of osteomyelitis of stump post bka s/p surgical revision now with AMS and acute hypoxic resp failure # acute hypoxic respiratory failure: sp intubation, suspect aspiration and aspiration pna in setting of AMS with large pleural effusoin that has now been tapped. Remains on vent but doing well on cpap trials and likely will extubated soon, limited by anxiety. Had post thora small ptx that is improved. # aspiration PNA: treating with zosyn, repeat cxr personally reviewed with improved pleural effusion and bilateral infiltrates c/w atelectasis as well as likely pna # acute encephalopathy: occurring post op and improved with narcan, she has been having anxiety but otherwise appears alert and responding appropriately, will assess further when extubated # chris: in setting of poor po intake and recent surgery, infection etc. Likely ATN, creatinine continues to improve. Hyperkalemia improved. UOP picking up. # agma: in setting of above, improved s/p bicarb gtt # nstemi: with trop increased to 2 and new wall motion abnormality on echo, likely largely demand related in setting of above but will need further ischemic w/u when stable # c diff: not having significant diarrhea, on contact precautions and will begin oral vanco # acute on chronic diastolic heart failure: some volume overload noted, has gotten lasix x 1 and monitoring volume status # anemia: slightly lower than baseline, monitoring # osteomyelits: corynebacterium, sp surgical revision of affected area # DM, PVD # IP status, critically ill FC Reviewed with Dr. Berrios and multidisciplinary care team on rounds. Subjective: no significant overnight events, patient has been tolerating cpap trials but getting very anxious Objective: Vital Signs Temp Pulse Resp BP Pulse Ox 37.4 C 67 12 125/45 H 100 08/16/16 14:00 08/16/16 14:00 08/16/16 14:00 08/16/16 14:00 08/16/16 14:00 Microbiology 08/13/16 10:01 Gram Stain - Final Leg - Tissue 08/13/16 10:01 Gram Stain - Final Leg - Bone 08/15/16 16:31 Gram Stain - Final Pleural Fluid - Aspirate Laboratory Results 08/16/16 04:20 08/16/16 04:20 08/15/16 08/16/16 08/17/16 05:59 05:59 05:59 Intake Total 1043.3 1692 Output Total 475 1100 Balance 568.3 592 PT 16.4 SEC (12.0-15.0) H 08/15/16 03:51 INR 1.32 (0.83-1.16) H 08/15/16 03:51 intubated sedated anicteric ett in place rrr no mrg coarse bs dec at bases soft nt nd trace ble edema warm dry well perfused sedated - Time Spent With Patient Time Spent with Patient: greater than 35 minutes Time Spent with Patient: Greater than 35 minutes spent on this patients care, greater than 50% of time spent counseling, educating, and coordinating care regarding the above mentioned plan. ICD10 Worksheet Patient Problems: Problems Problem Status Onset C. 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
[2016-08-16] MEDS: VANCOMYCIN 125 MG/2.5 ML UDL PO SCH ×2 (16:32→20:16)
[2016-08-16] MEDS: GABAPENTIN 300 MG CAP PO SCH (19:44)
[2016-08-16] MEDS: PATCH REMOVAL 1 EA PATCH TD SCH (20:20)
[2016-08-17] MEDS: PIPERACILLIN/TAZO 2.25 GM/DEX 50 ML IV SCH ×4 (00:31→17:26)
[2016-08-17] MEDS: ONDANSETRON 4 MG/2 ML VIAL IVP PRN ×2 (00:40→16:53)
[2016-08-17 05:45] LABS: % IMMATURE GRANULYOCYTES 0.3 % (0.0-1.1); ABSOLUTE IMMATURE GRANULOCYTES 0.03 10^3/uL (0.00-0.10); ADD DIFF? NO; ADD MORPH? NO; ADD SCAN? NO; ATYPICAL LYMPHOCYTE FLAG 10 (0-99); FRAGMENT RBC FLAG 0 (0-99); HEMATOCRIT 24.4 % (38.0-47.0); HEMOGLOBIN 7.6 g/dL (12.6-16.3); LEFT SHIFT FLG 0 (0-99); LIPEMIA HEMOLYSIS FLAG 80 (0-99); MEAN CELL HEMOGLOBIN 31.3 pg (27.9-34.1); MEAN CELL HEMOGLOBIN CONCENTR. 31.1 g/dL (32.4-36.7); MEAN CELL VOLUME 100.4 fL (81.5-99.8); MEAN PLATELET VOLUME 11.8 fL (8.7-11.7); PLATELET CLUMPS FLAG 0 (0-99); PLATELET COUNT 148 10^3/uL (150-400); RED BLOOD CELL COUNT 2.43 10^6/uL (4.18-5.33); RED CELL DISTRIBUTION WIDTH 14.1 % (11.5-15.2)
[2016-08-17] MEDS: LEVOTHYROXINE 112 MCG TAB PO SCH (05:54)
[2016-08-17] MEDS: HEPARIN 5,000 UNIT/0.5 ML SYR SC SCH ×3 (05:54→22:14)
[2016-08-17] MEDS: VANCOMYCIN 125 MG/2.5 ML UDL PO SCH ×4 (05:55→22:14)
[2016-08-17 06:02] LABS: ANION GAP 14 mEq/L (8-16); CALCIUM 7.7 mg/dL (8.5-10.4); CARBON DIOXIDE 16 mEq/l (22-31); CHLORIDE 113 mEq/L (97-110); CREATININE 1.5 mg/dL (0.6-1.0); GLOMERULAR FILTRATION RATE 33; GLUCOSE 99 mg/dL (70-100); POTASSIUM 4.1 mEq/L (3.5-5.2); SODIUM 143 mEq/L (134-144)
[2016-08-17] MEDS: INSULIN LISPRO 100 UNIT/ML SC SCH ×3 (06:32→17:31)
[2016-08-17] MEDS: CHLORHEXIDINE GLUCONATE 15 ML UDL PO SCH ×2 (07:13→21:17)
[2016-08-17] MEDS: HYDROmorphONE/DILAUDID 1 MG/ML SYR IVP PRN (07:30)
[2016-08-17] MEDS: oxyCODONE IR 5 MG TAB PO PRN (07:40)
[2016-08-17] MEDS ORDERED: NS 500 ML IV ONE (08:00)
[2016-08-17] MEDS: GABAPENTIN 100 MG CAP PO SCH (08:21)
[2016-08-17] MEDS: SENNOSIDES/DOCUSATE SODIUM TAB PO SCH ×2 (08:21→21:18)
[2016-08-17] MEDS: LIDOCAINE 5% 1 EA PATCH TD SCH (08:22)
[2016-08-17] MEDS: AZITHROMYCIN IV 500 MG in D5W 250 ML IV SCH (08:22)
[2016-08-17] MEDS: ESCITALOPRAM OXALATE 10 MG TAB PO SCH (08:22)
[2016-08-17] MEDS: ASPIRIN 325 MG TAB PO SCH (08:22)
[2016-08-17] MEDS: FAMOTIDINE 20 MG/NACL 50 ML IV SCH (08:22)
[2016-08-17] MEDS: CHOLESTYRAMINE/SUCROSE 4 GM PKT PO SCH ×2 (08:23→22:14)
--- NOTE | 2016-08-17 09:17 | PDINTPN ---
Robotype Operator Progress Note Assessment/Plan: Assessment/Plan: * Acute resp failure-stable off vent * Lg Right Pleural effusion-improved after thoracentesis * Hypotension-on increased IVF -add albumin -add pressors if needed * PTX-post tap. Stable/smaller * Anxiety-off precedex * CHF-ECHO with EF of 42% * DM-BS okay * PVD * S/P revision of BKA * Cdif * Anemia * VTE proph * Stress ulcer proph Case discussed with RT and nursing Subjective: Awake and alert. Comfortable. Objective: Vital Signs Temp Pulse Resp BP Pulse Ox 36.9 C 88 18 80/34 L 99 08/17/16 08:00 08/17/16 08:00 08/17/16 08:00 08/17/16 08:00 08/17/16 08:00 Microbiology 08/15/16 16:31 Gram Stain - Final Pleural Fluid - Aspirate 08/13/16 10:01 Gram Stain - Final Leg - Tissue 08/13/16 10:01 Gram Stain - Final Leg - Bone Laboratory Results 08/17/16 05:30 08/17/16 05:30 08/16/16 08/17/16 08/18/16 05:59 05:59 05:59 Intake Total 1692 1742 Output Total 1100 500 Balance 592 1242 PT 16.4 SEC (12.0-15.0) H 08/15/16 03:51 INR 1.32 (0.83-1.16) H 08/15/16 03:51 Physical Exam - Physical Exam General Appearance: alert, no apparent distress EENT: PERRL/EOMI, normal ENT inspection Neck: non-tender, full range of motion, supple, normal inspection Respiratory: crackles (few), No respiratory distress, No stridor, No wheezing Cardiac/Chest: normal peripheral pulses, regular rate, rhythm, systolic murmur Peripheral Pulses: 2+: carotid (R), carotid (L), femoral (R), femoral (L), dorsalis-pedis (R), dorsalis-pedis (L) Abdomen: normal bowel sounds, non-tender, soft Pelvic Exam: deferred Rectal: deferred Skin: normal color, warm/dry ICD10 Worksheet Patient Problems: Problems Problem Status Onset C. 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
[2016-08-17] MEDS ORDERED: ALBUMIN 25% 100 ML IV ONE ×2 (09:18→16:51)
[2016-08-17 12:28] LABS: % IMMATURE GRANULYOCYTES 0.6 % (0.0-1.1); ABSOLUTE IMMATURE GRANULOCYTES 0.05 10^3/uL (0.00-0.10); ADD DIFF? NO; ADD MORPH? YES; ADD SCAN? NO; ATYPICAL LYMPHOCYTE FLAG 30 (0-99); FRAGMENT RBC FLAG 0 (0-99); HEMATOCRIT 22.2 % (38.0-47.0); LEFT SHIFT FLG 20 (0-99); LIPEMIA HEMOLYSIS FLAG 80 (0-99); MEAN CELL HEMOGLOBIN 31.6 pg (27.9-34.1); MEAN CELL HEMOGLOBIN CONCENTR. 30.6 g/dL (32.4-36.7); MEAN CELL VOLUME 103.3 fL (81.5-99.8); MEAN PLATELET VOLUME 11.4 fL (8.7-11.7); PLATELET CLUMPS FLAG 0 (0-99); PLATELET COUNT 143 10^3/uL (150-400); RED BLOOD CELL COUNT 2.15 10^6/uL (4.18-5.33); RED CELL DISTRIBUTION WIDTH 14.3 % (11.5-15.2)
[2016-08-17] MEDS: NOREPINEPHRINE BITARTRATE 4 MG in D5W 500 ML IV SCH ×2 (12:31→17:59)
[2016-08-17 12:34] LABS: HEMOGLOBIN 6.8 g/dL (12.6-16.3)
[2016-08-17 13:24] LABS: HYPOCHROMIA 2+; MACROCYTES 1+; PLATELET ESTIMATE DECREASED (ADEQ)
[2016-08-17 14:07] LABS: INR 1.51 (0.83-1.16); PROTIME(PATIENT) 18.2 SEC (12.0-15.0)
[2016-08-17 14:08] LABS: APTT 36.7 SEC (23.0-38.0)
[2016-08-17 14:22] LABS: ALANINE AMINOTRANSFERASE 30 IU/L (9-52); ALBUMIN 3.4 g/dL (3.5-5.0); ALKALINE PHOSPHATASE 111 IU/L (38-126); ANION GAP 15 mEq/L (8-16); ASPARTATE AMINOTRANSFERASE 61 IU/L (14-46); BILIRUBIN,TOTAL 0.9 mg/dL (0.1-1.4); BILIRUBIN-CONJUGATED 0.7 mg/dL (0.0-0.5); BILIRUBIN-UNCONJUGATED 0.2 mg/dL (0.0-1.1); CALCIUM 7.7 mg/dL (8.5-10.4); CARBON DIOXIDE 17 mEq/l (22-31); CHLORIDE 111 mEq/L (97-110); CREATININE 1.9 mg/dL (0.6-1.0); GLOMERULAR FILTRATION RATE 25; GLUCOSE 232 mg/dL (70-100); POTASSIUM 3.9 mEq/L (3.5-5.2); SODIUM 143 mEq/L (134-144); TOTAL PROTEIN 6.3 g/dL (6.3-8.2)
--- NOTE | 2016-08-17 15:04 | SOAPPROG ---
SOAP Progress Note Assessment/Plan: Assessment: 86yo female s/p left BKA revision resp failure -- extubated Cdiff on contact precautions anemia stable pleural effusion s/p thoracentesis PE awake alert "little cranky" Chest CTA B/L Left leg (dressing changed), stapled incision clean dry intact, no discharge Plan: changed dressing today continue dressing changes every 1-2 days 08/16/16 09:58 08/17/16 15:03 Objective: Vital Signs Temp Pulse Resp BP Pulse Ox 37.2 C 90 21 H 101/49 L 99 08/17/16 12:00 08/17/16 14:00 08/17/16 14:00 08/17/16 14:00 08/17/16 14:00 Microbiology 08/15/16 16:31 Gram Stain - Final Pleural Fluid - Aspirate 08/13/16 10:01 Gram Stain - Final Leg - Tissue 08/13/16 10:01 Gram Stain - Final Leg - Bone Laboratory Results 08/17/16 12:15 08/17/16 13:45 08/16/16 08/17/16 08/18/16 05:59 05:59 05:59 Intake Total 1692 1742 Output Total 1100 500 25 Balance 592 1242 -25 PT 18.2 SEC (12.0-15.0) H 08/17/16 13:45 INR 1.51 (0.83-1.16) H 08/17/16 13:45 ICD10 Worksheet Patient Problems: Problems Problem Status Onset C. 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
--- NOTE | 2016-08-17 15:38 | HOSPPROG ---
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 Doing well on miminal o2 # septic shock: now requiring pressors to maintain MAPs > 65, CVP adequate-- will continue to trend. Abx as next. Will check sputum/urine cultures as well, continue to monitor blood cultures which show ngtd. Will add vanco for empiric MRSA coverage given recent BKA and risk of nosocomial organisms not covered by cefepime. Surgical site appears cdi. # aspiration PNA: treating with zosyn/azithro, repeat cxr personally reviewed with stable pleural effusion and bilateral lower lobe infiltrates # acute encephalopathy: patient awake and alert, intermittently slightly confused c/w delirium # chris: in setting of poor po intake and recent surgery, infection etc. Likely ATN in setting of infection and now shock as above. UOP has been dropping off over the last 24 hours, monitoring on pressors. If UOP not picking up will need to consult renal for consideration of HD. # agma: in setting of above, improved s/p bicarb gtt # nstemi: with trop increased to 2 and new wall motion abnormality on echo, likely largely demand related in setting of above but will need further ischemic w/u when stable # c diff: not having significant diarrhea, on contact precautions and will begin oral vanco # acute on chronic diastolic heart failure: some volume overload noted, has gotten lasix x 1 and monitoring volume status # anemia: slightly lower than baseline, monitoring # osteomyelits: corynebacterium, sp surgical revision of affected area # DM, PVD # IP status, critically ill FC--will need to get further information regarding family/mdpoa Reviewed with Dr. Berrios and multidisciplinary care team on rounds. > 45 minutes of critical care time spent, more than half in direct/face to face patient care, interpreting labs, starting pressors and abx Subjective: patient now extubated and more alert and interactive however bp has been dropping over the day and uop decreasing Objective: Vital Signs Temp Pulse Resp BP Pulse Ox 37.2 C 86 19 140/59 H 97 08/17/16 12:00 08/17/16 15:00 08/17/16 15:00 08/17/16 15:00 08/17/16 15:00 Microbiology 08/15/16 16:31 Gram Stain - Final Pleural Fluid - Aspirate 08/13/16 10:01 Gram Stain - Final Leg - Tissue 08/13/16 10:01 Gram Stain - Final Leg - Bone Laboratory Results 08/17/16 12:15 08/17/16 13:45 08/16/16 08/17/16 08/18/16 05:59 05:59 05:59 Intake Total 1692 1742 Output Total 1100 500 25 Balance 592 1242 -25 PT 18.2 SEC (12.0-15.0) H 08/17/16 13:45 INR 1.51 (0.83-1.16) H 08/17/16 13:45 awake alert anicteric poor dentition, op clear rrr no mrg coarse bs dec at bases soft nt nd ble bka, left bandaged warm dry well perfused oriented ICD10 Worksheet Patient Problems: Problems Problem Status Onset C. 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
[2016-08-17] MEDS ORDERED: VASOPRESSIN/DEXTROSE 250 ML IV SCH (16:00)
[2016-08-17 16:05] LABS: HEMATOCRIT 23.4 % (38.0-47.0); HEMOGLOBIN 7.3 g/dL (12.6-16.3)
[2016-08-17 16:17] LABS: CALCIUM 7.6 mg/dL (8.5-10.4); CARBON DIOXIDE 16 mEq/l (22-31); CHLORIDE 108 mEq/L (97-110); GLOMERULAR FILTRATION RATE 24; GLUCOSE 256 mg/dL (70-100); SODIUM 139 mEq/L (134-144)
[2016-08-17] MEDS: VANCOMYCIN 750 MG in D5W 150 ML IV SCH (16:25)
[2016-08-17 16:37] LABS: ANION GAP 15 mEq/L (8-16); POTASSIUM 3.9 mEq/L (3.3-5.0)
--- NOTE | 2016-08-17 17:22 | CPEKG ---
Heart Rate: 84 RR Interval: 714 P-R Interval: 184 QRSD Interval: 90 QT Interval: 432 QTC Interval: 511 P [place]: 92 QRS [place]: 14 T Wave [place]: 32 EKG Severity - ABNORMAL ECG - EKG Impression: SINUS RHYTHM EKG Impression: LOW VOLTAGE IN FRONTAL LEADS EKG Impression: CONSIDER ANTERIOR INFARCT EKG Impression: BORDERLINE T ABNORMALITIES, ANTERIOR LEADS EKG Impression: PROLONGED QT INTERVAL Electronically Signed By: Dev Jones 19-Aug-2016 18:25:33
--- NOTE | 2016-08-17 20:27 | HOSPPROG ---
Hospitalist Progress Note Assessment/Plan: 86 yo F w hypotension hypotension: cardiogenic shock given low ef (new), high bnp and trop discussion w cardiology- unlikely acute ischemic event acidosis noted- this can lead to global HK in ICU patients 1. check ABG 2. trial of dobutamine 3. no lasix given as she is preload dependent an ddoesnt really have pulm edema 40 minutes crit care Subjective: following up dexter persistently hypotensive patient. 1. echo discussed w dr hernandez- ef <20%, global, worse from 08/14. 2. on 3 L. 3. cvp 14. 4. poor uop. 5. ekg w no real injury pattern (lat st depression mild, noted. d/w mary. ekg interp by me. 6. no crackles on exam. 7. remains on levophed Objective: Vital Signs Temp Pulse Resp BP Pulse Ox 37.4 C 80 19 105/45 L 96 08/17/16 16:00 08/17/16 18:00 08/17/16 18:00 08/17/16 18:00 08/17/16 18:00 Microbiology 08/15/16 16:31 Gram Stain - Final Pleural Fluid - Aspirate 08/13/16 10:01 Gram Stain - Final Leg - Tissue 08/13/16 10:01 Gram Stain - Final Leg - Bone Laboratory Results 08/17/16 15:50 08/17/16 15:50 08/16/16 08/17/16 08/18/16 05:59 05:59 05:59 Intake Total 1692 1742 1253 Output Total 1100 500 50 Balance 592 1242 1203 PT 18.2 SEC (12.0-15.0) H 08/17/16 13:45 INR 1.51 (0.83-1.16) H 08/17/16 13:45 - Physical Exam Constitutional: no apparent distress, appears nourished Eyes: PERRL, anicteric sclera Ears, Nose, Mouth, Throat: moist mucous membranes Cardiovascular: regular rate and rhythym, systolic murmur Respiratory: no respiratory distress Gastrointestinal: normoactive bowel sounds Genitourinary: lindo in urethra Skin: warm ICD10 Worksheet Patient Problems: Problems Problem Status Onset C. 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
[2016-08-17] MEDS ORDERED: DOBUTamine 500 MG in D5W 250 ML IV SCH (20:30)
[2016-08-17 20:37] LABS: BASE EXCESS -10.3 mEq/L (-2.5-2.5); BICARBONATE 15 mEq/L (22-26); MEASURED OXYGEN SATURATION 92 % (92-95); PCO2 36 mmHg (34-38); PO2 70 mmHg (65-75); TCO2 17 mEq/L (23-27)
[2016-08-17] MEDS: DOBUTamine/DEXTROSE 250 ML IV SCH (22:13)
[2016-08-17] MEDS: GABAPENTIN 300 MG CAP PO SCH (22:14)
[2016-08-17] MEDS: PATCH REMOVAL 1 EA PATCH TD SCH (22:14)
[2016-08-17] MEDS ORDERED: SODIUM BICARBONATE 50 MEQ/50 ML SYR IVP ONE (23:00)
[2016-08-18] MEDS: PIPERACILLIN/TAZO 2.25 GM/DEX 50 ML IV SCH ×4 (00:30→17:05)
--- NOTE | 2016-08-18 03:04 | CPEKG ---
Heart Rate: 97 RR Interval: 619 P-R Interval: 159 QRSD Interval: 84 QT Interval: 372 QTC Interval: 473 P [place]: 0 QRS [place]: 43 T Wave [place]: 41 EKG Severity - BORDERLINE ECG - EKG Impression: SINUS RHYTHM EKG Impression: LOW VOLTAGE THROUGHOUT EKG Impression: BORDERLINE T ABNORMALITIES, ANT-LAT LEADS Electronically Signed By: Dev Jones 19-Aug-2016 18:25:38
[2016-08-18 05:11] LABS: PCO2 VENOUS 45 mmHg (40-44); PH VENOUS BLOOD 7.23 (7.31-7.42); PO2 VENOUS 71 mmHg (35-40); TCO2 VENOUS 19 mEq/L (23-27); VEN MEASURED OXYGEN SATURATION 91 % (65-75)
[2016-08-18 05:15] LABS: % IMMATURE GRANULYOCYTES 0.5 % (0.0-1.1); ABSOLUTE IMMATURE GRANULOCYTES 0.05 10^3/uL (0.00-0.10); ADD DIFF? NO; ADD MORPH? NO; ADD SCAN? NO; ATYPICAL LYMPHOCYTE FLAG 20 (0-99); FRAGMENT RBC FLAG 0 (0-99); HEMATOCRIT 25.7 % (38.0-47.0); HEMOGLOBIN 8.1 g/dL (12.6-16.3); LEFT SHIFT FLG 10 (0-99); LIPEMIA HEMOLYSIS FLAG 80 (0-99); MEAN CELL HEMOGLOBIN 29.9 pg (27.9-34.1); MEAN CELL HEMOGLOBIN CONCENTR. 31.5 g/dL (32.4-36.7); MEAN CELL VOLUME 94.8 fL (81.5-99.8); MEAN PLATELET VOLUME 10.8 fL (8.7-11.7); PLATELET CLUMPS FLAG 20 (0-99); PLATELET COUNT 145 10^3/uL (150-400); RED BLOOD CELL COUNT 2.71 10^6/uL (4.18-5.33)
[2016-08-18] MEDS: LEVOTHYROXINE 112 MCG TAB PO SCH (05:41)
[2016-08-18] MEDS: VANCOMYCIN 125 MG/2.5 ML UDL PO SCH ×4 (05:41→20:21)
[2016-08-18] MEDS: HEPARIN 5,000 UNIT/0.5 ML SYR SC SCH ×3 (05:41→22:24)
[2016-08-18 06:09] LABS: ANION GAP 12 mEq/L (8-16); CALCIUM 7.6 mg/dL (8.5-10.4); CARBON DIOXIDE 19 mEq/l (22-31); CHLORIDE 112 mEq/L (97-110); CREATININE 2.2 mg/dL (0.6-1.0); GLOMERULAR FILTRATION RATE 21; GLUCOSE 135 mg/dL (70-100); MAGNESIUM 1.4 mg/dL (1.6-2.3); POTASSIUM 3.5 mEq/L (3.5-5.2); SODIUM 143 mEq/L (134-144)
[2016-08-18] MEDS: oxyCODONE IR 5 MG TAB PO PRN (06:28)
[2016-08-18] MEDS: INSULIN LISPRO 100 UNIT/ML SC SCH ×3 (07:26→17:05)
[2016-08-18] MEDS: LIDOCAINE 5% 1 EA PATCH TD SCH (08:11)
[2016-08-18] MEDS: ASPIRIN 325 MG TAB PO SCH (08:11)
[2016-08-18] MEDS: GABAPENTIN 100 MG CAP PO SCH (08:11)
[2016-08-18] MEDS: SENNOSIDES/DOCUSATE SODIUM TAB PO SCH ×2 (08:11→20:22)
[2016-08-18] MEDS: CHLORHEXIDINE GLUCONATE 15 ML UDL PO SCH ×2 (08:11→20:21)
[2016-08-18] MEDS: CHOLESTYRAMINE/SUCROSE 4 GM PKT PO SCH ×2 (08:11→20:21)
[2016-08-18] MEDS: FAMOTIDINE 20 MG TAB PO SCH (08:11)
[2016-08-18] MEDS: ESCITALOPRAM OXALATE 10 MG TAB PO SCH (08:11)
[2016-08-18] MEDS: AZITHROMYCIN IV 500 MG in D5W 250 ML IV SCH (08:11)
--- NOTE | 2016-08-18 08:56 | PDINTPN ---
[facility] Progress Note Assessment/Plan: Assessment/Plan: * Resp-stable * Lg Right Pleural effusion-improved after thoracentesis * Hypotension-query cardiac -now on dobutamine * PTX-post tap. Stable/smaller * Anxiety-off precedex * CHF-Previous ECHO with EF of 42%. Current is reduced -will discuss with cardiology * DM-BS siva * PVD * S/P revision of BKA * Cdif * Anemia * VTE proph * Stress ulcer proph Case discussed with RT and nursing Subjective: Awake and alert. Comfortable. Objective: Vital Signs Temp Pulse Resp BP Pulse Ox 37.6 C 95 15 113/44 L 91 L 08/18/16 08:00 08/18/16 08:00 08/18/16 08:00 08/18/16 08:00 08/18/16 08:00 Microbiology 08/15/16 16:31 Gram Stain - Final Pleural Fluid - Aspirate 08/13/16 10:01 Gram Stain - Final Leg - Tissue 08/13/16 10:01 Gram Stain - Final Leg - Bone Laboratory Results 08/18/16 05:05 08/18/16 05:05 08/17/16 08/18/16 08/19/16 05:59 05:59 05:59 Intake Total 1742 2554 Output Total 500 130 Balance 1242 2424 PT 18.2 SEC (12.0-15.0) H 08/17/16 13:45 INR 1.51 (0.83-1.16) H 08/17/16 13:45 Laboratory Results 08/18/16 05:05 08/18/16 05:05 08/18/16 08/18/16 08/18/16 07:57 05:05 05:05 VBG pH 7.23 L (7.31 - 7.42) VBG HCO3 18 mEQ/L L mEQ/L (22 - 26) VBG Total CO2 19 mEq/L L mEq/L (23 - 27) VBG O2 Saturation 91 % H % (65 - 75) VBG Base Excess -8.6 mEq/L L mEq/L (-2.5 - 2.5) Mixed VBG pCO2 45 mmHg H mmHg (40 - 44) POC Glucose 140 mg/dL H mg/dL (70 - 100) Calcium 7.6 mg/dL L mg/dL (8.5 - 10.4) Phosphorus 3.9 mg/dL mg/dL (2.5 - 4.5) Magnesium 1.4 mg/dL L mg/dL (1.6 - 2.3) Troponin I 08/18/16 01:00 VBG pH VBG HCO3 VBG Total CO2 VBG O2 Saturation VBG Base Excess Mixed VBG pCO2 POC Glucose Calcium Phosphorus Magnesium Troponin I 14.600 ng/mL H ng/mL (0 - 0.034) Physical Exam - Physical Exam General Appearance: alert, no apparent distress EENT: PERRL/EOMI, normal ENT inspection Neck: non-tender, full range of motion, supple Respiratory: crackles (few), No respiratory distress, No stridor, No wheezing Cardiac/Chest: normal peripheral pulses, regular rate, rhythm, systolic murmur Abdomen: normal bowel sounds, non-tender, soft Pelvic Exam: deferred Rectal: deferred Skin: normal color, warm/dry Extremities: normal range of motion, non-tender, normal inspection, normal capillary refill, other (bilat bka) Neuro/Psych: no motor/sensory deficits, alert ICD10 Worksheet Patient Problems: Problems Problem Status Onset C. 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
--- NOTE | 2016-08-18 09:17 | ECHO ---
[id number] + + [address] : : [place] [address] : : [phone] + + Adult Echocardiographic Report + ------+ :Name: JUNIOR ROMO KStudy Date: 08/17/2016 06:54 PM : : Hospital Admission Number: [id number] Locatio n: 255: :: 1930 Gender: Female Height: 60 in : :Age: 86 yrs Race: WH Weight: 153 lb : :Reason For Study: Eval LV Fx : : BSA: 1.7 meters 2 : :History: Elevated Troponins 10, Shock : + ------+ MMode/2D Measurements \T\ Calculations IVSd: 0.97 cm LVIDd: 4.8 cm FS: 16.3 % Ao root diam: 2.6 cm LVPWd: 1.1 cm LVIDs: 4.0 cm EDV(Teich): 108.6 ml ACS: 0.37 cm ESV(Teich): 71.5 ml EF(Teich): 34.2 % LVOT diam: 1.9 cm LVOT area: 2.8 cm2 Normal Measurement Values: + + :LVIDd (3.5-5.7cm) IVSd (0.6-1.1cm) LVPWd (0.6-1.1cm) Aortic Root (2.0-3.7cm)Left Atrium (1.5-4.0cm): :LV Vol(d) (76-115ml) LV Vol(s) (29-48ml) Ejec Fraction (50-65%)PV Robert (0.6- 1.2m/s) TV Robert (0.4-1.0m/s) : :MV E Robert (0.8-1.0m/s)MV A Robert (0.3-1.0m/s)LVOT Robert (0.7-1.2m/s) Asc Ao Robert ( 0.9-1.8m/s) : + + Doppler Measurements \T\ Calculations MV E max robert: Ao V2 max: LV V1 max: MR max robert: 75.5 cm/sec 285.7 cm/sec 74.5 cm/sec 402.6 cm/sec MV A max robert: Ao max PG: LV V1 max PG: MR max P.3 cm/sec 32.6 mmHg 2.2 mmHg 64.8 mmHg MV E/A: 0.85 Ao mean PG: LV V1 mean P.1 mmHg 1.1 mmHg Ao V2 mean: LV V1 mean: 196.8 cm/sec 46.6 cm/sec Ao V2 VTI: 57.5 cm LV V1 VTI: 15.1 cm ESTRELLA(I,D): 0.74 cm2 ESTRELLA(V,D): 0.74 cm2 SV(LVOT): 42.8 ml PA V2 max: TR max robert: 71.9 cm/sec 291.8 cm/sec PA max P.1 mmHgTR max P.1 mmHg RAP systole: 5.0 mmHg RVSP(TR): 39.1 mmHg Left Ventricle The left ventricle is normal in size. There is mild concentric left ventricular hypertrophy. Ejection Fraction = 25-30%. There is basilar to mid anteroseptal dyskinesis, there is inferior hypokinesis. Mid inferolateral hypokinesis. Right Ventricle The right ventricle is normal size. Atria The left atrial size is normal. Right atrial size is normal. Mitral Valve The mitral valve leaflets appear thickened, but open well. There is no mitral valve stenosis. There is moderate mitral regurgitation. Tricuspid Valve There is trace to mild tricuspid regurgitation. Right ventricular systolic pressure is normal. Aortic Valve Moderate Aortic Valve Calcification. The aortic leaflets have restriced mobility. There is a mean Ao PG of 18 mmHg most likely low flow stenosis. NDSI = .26. Trace aortic regurgitation. Pulmonic Valve The pulmonic valve is not well visualized. Great Vessels The aortic root is normal size. Pericardium/Pleural There is no pericardial effusion. Conclusion A complete two-dimensional transthoracic echocardiogram was performed (2D, M-mode, Doppler and color flow Doppler). There is mild concentric left ventricular hypertrophy. Ejection Fraction = 25-30%. There is basilar to mid anteroseptal dyskinesis, there is inferior hypokinesis. Mid inferolateral hypokinesis. The mitral valve leaflets appear thickened, but open well. There is moderate mitral regurgitation. There is trace to mild tricuspid regurgitation. Right ventricular systolic pressure is normal. Moderate Aortic Valve Calcification The aortic leaflets have restriced mobility. There is a mean Ao PG of 18 mmHg most likely low flow stenosis. NDSI = .26 Trace aortic regurgitation. There is no pericardial effusion. Final Reading Physician: Jamarcus Mansfield MD electronically signed on 08/18/2016 09:16 AM Ordering Physician: Nicolasa Carr Performed By: Ming Curry, ADWOACS
--- NOTE | 2016-08-18 12:48 | PDCARCONS ---
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 Was asked to visit with her by Dr. Masood Berrios because of abnormal echocardiogram, elevated troponin levels and worsening renal failure. The patient was seen in ICU, her RN was present in the room at the time of this interview. Patient offers no complaints at this time. She denies chest pain. She denies shortness of breath at rest. History Information - Allergies/Home Medication List Allergies/Adverse Reactions: oxycodone HCl [From Percocet] Allergy (Unknown, Verified 06/19/11 19:46) NAUSEA IODINE Allergy (Mild, Uncoded 06/19/11 19:46) NAUSEA NARCOTICS Allergy (Mild, Uncoded 06/19/11 19:46) NAUSEA FISH Allergy (Unknown, Uncoded 06/19/11 19:46) Home Medications: Acetaminophen [Tylenol 325mg (*)] 650 mg PO Q4 PRN 08/09/16 [Last Taken 08/12/16 ] Famotidine [Pepcid] 40 mg PO DAILY PRN 08/09/16 [Last Taken 08/12/16] Lidocaine 2% Jelly [Lidocaine 2% Jelly (*)] 1 cyndi TP DAILY PRN 08/09/16 [Last Taken 08/12/16] Oxycodone HCl 5 mg PO Q4 PRN 08/09/16 [Last Taken 08/12/16] Promethazine HCl 25 mg PO Q6 PRN 08/09/16 [Last Taken 08/12/16] Promethazine HCl [Phenergan] 25 mg RC Q6 PRN 08/09/16 [Last Taken 08/12/16] Sennosides [Senokot 8.6mg (OTC)] 1 each PO BID PRN 08/09/16 [Last Taken 08/12/16 ] traZODone [traZODONE 50MG (*)] 50 mg PO HS PRN 08/09/16 [Last Taken 08/12/16] Albuterol [Proventil Neb] 3 ml IH Q4-6PRN PRN 08/10/16 [Last Taken Unknown] Aspirin [Aspirin 81mg (*)] 81 mg PO DAILY 08/10/16 [Last Taken 08/12/16] Carvedilol [Coreg (*)] 12.5 mg PO BIDMEAL 08/10/16 [Last Taken 08/12/16] Cholestyramine (with Sugar) [Cholestyramine Packet] 4 gm PO BID 08/10/16 [Last Taken 08/12/16] Escitalopram Oxalate [Lexapro] 10 mg PO DAILY 08/10/16 [Last Taken 08/12/16] Furosemide [Lasix 40 MG (*)] 40 mg PO DAILY 08/10/16 [Last Taken 08/12/16] Gabapentin [Neurontin 300 MG (*)] 300 mg PO DAILY 08/10/16 [Last Taken 08/12/16] Gabapentin [Neurontin 300 MG (*)] 600 mg PO HS 08/10/16 [Last Taken 08/12/16] Herbals/Supplements -Info Only 1 ea PO DAILY 08/10/16 [Last Taken 08/12/16] Insulin Glargine [Lantus 100 UNITS/ML (*)] 18 units SC DAILY 08/10/16 [Last Taken 08/12/16] Levothyroxine [Synthroid 112 mcg (*)] 112 mcg PO DAILY06 08/10/16 [Last Taken ] Losartan Potassium [Cozaar 50 mg (*)] 100 mg PO DAILY 08/10/16 [Last Taken 08/12] amLODIPine BESYLATE [Norvasc 2.5 mg (*)] 2.5 mg PO HS 08/10/16 [Last Taken 08/12] Collagenase [Santyl (*)] 1 cyndi TP DAILY PRN 08/13/16 [Last Taken Unknown] Insulin Aspart [Novolog Flexpen] 3 unit SQ DAILY@11 08/14/16 [Last Taken ] Insulin Aspart [Novolog Flexpen] 5 unit SQ BID@08/14/16 [Last Taken ] - Past Medical History CHF, diabetes type 2, peripheral artery disease - Social History Smoking Status: Never smoked Alcohol Use: None Drug Use: None Physical Exam Temp Pulse Resp BP Pulse Ox 37.0 C 88 9 L 113/38 L 97 08/18/16 12:00 08/18/16 12:00 08/18/16 12:00 08/18/16 12:00 08/18/16 12:00 O2 (L/minute) 2 FIO2 (%) 40 Constitutional: no apparent distress Eyes: PERRL, EOMI Ears, Nose, Mouth, Throat: hard of hearing Cardiovascular: regular rate and rhythym, systolic murmur Respiratory: respiratory distress (Mild respiratory distress) Gastrointestinal: soft, non-tender abdomen Lab and Imaging 08/18/16 05:05 08/18/16 05:05 WBC 10.41 10^3/uL (3.80-9.50) H 08/18/16 05:05 RBC 2.71 10^6/uL (4.18-5.33) L 08/18/16 05:05 Hgb 8.1 g/dL (12.6-16.3) L 08/18/16 05:05 Hct 25.7 % (38.0-47.0) L 08/18/16 05:05 MCV 94.8 fL (81.5-99.8) D 08/18/16 05:05 MCH 29.9 pg (27.9-34.1) 08/18/16 05:05 MCHC 31.5 g/dL (32.4-36.7) L 08/18/16 05:05 RDW 17.0 % (11.5-15.2) H 08/18/16 05:05 Plt Count 145 10^3/uL (150-400) L 08/18/16 05:05 MPV 10.8 fL (8.7-11.7) 08/18/16 05:05 Neut % (Auto) 70.2 % (39.3-74.2) 08/18/16 05:05 Lymph % (Auto) 12.3 % (15.0-45.0) L 08/18/16 05:05 [place] % (Auto) 13.4 % (4.5-13.0) H 08/18/16 05:05 Eos % (Auto) 3.2 % (0.6-7.6) 08/18/16 05:05 Baso % (Auto) 0.4 % (0.3-1.7) 08/18/16 05:05 Nucleat RBC Rel Count 0.0 % (0.0-0.2) 08/18/16 05:05 Absolute Neuts (auto) 7.32 10^3/uL (1.70-6.50) H 08/18/16 05:05 Absolute Lymphs (auto) 1.28 10^3/uL (1.00-3.00) 08/18/16 05:05 Absolute Monos (auto) 1.39 10^3/uL (0.30-0.80) H 08/18/16 05:05 Absolute Eos (auto) 0.33 10^3/uL (0.03-0.40) 08/18/16 05:05 Absolute Basos (auto) 0.04 10^3/uL (0.02-0.10) 08/18/16 05:05 Absolute Nucleated RBC 0.00 10^3/uL (0-0.01) 08/18/16 05:05 Immature Gran % 0.5 % (0.0-1.1) 08/18/16 05:05 Immature Gran # 0.05 10^3/uL (0.00-0.10) 08/18/16 05:05 Platelet Estimate DECREASED (ADEQ) L 08/17/16 12:15 Hypochromasia 2+ H 08/17/16 12:15 Oval Macrocytes 1+ H 08/17/16 12:15 Smear Review By Bill ESPINAL MD 08/17/16 12:15 PT 18.2 SEC (12.0-15.0) H 08/17/16 13:45 INR 1.51 (0.83-1.16) H 08/17/16 13:45 APTT 36.7 SEC (23.0-38.0) 08/17/16 13:45 Specimen Type ARTERIAL 08/15/16 08:28 Puncture Site VENOUS 08/18/16 05:05 Patient Temperature 37.0 DEGREES 08/18/16 05:05 pCO2 36 mmHg (34-38) 08/17/16 20:30 pO2 70 mmHg (65-75) 08/17/16 20:30 Total CO2 17 mEq/L (23-27) L 08/17/16 20:30 Base Excess -3.0 mEq/L (-2.5-2.5) L 08/15/16 08:28 ABG pH 7.26 (7.35-7.45) L 08/17/16 20:30 ABG PO2/FiO2 Ratio 113 RATIO 08/15/16 04:10 ABG HCO3 21 mEq/L (22-26) L 08/15/16 08:28 ABG O2 Sat (Calculated) 99 % (92-95) H 08/15/16 08:28 ABG O2 Saturation 92 % (92-95) 08/17/16 20:30 ABG Base Excess -10.3 mEq/L (-2.5-2.5) L 08/17/16 20:30 ABG Lactic Acid 2.1 mmol/L (0.5-1.6) H D 08/17/16 12:15 VBG pH 7.23 (7.31-7.42) L 08/18/16 05:05 VBG HCO3 18 mEQ/L (22-26) L 08/18/16 05:05 VBG Total CO2 19 mEq/L (23-27) L 08/18/16 05:05 VBG O2 Saturation 91 % (65-75) H 08/18/16 05:05 VBG Base Excess -8.6 mEq/L (-2.5-2.5) L 08/18/16 05:05 VBG Lactic Acid 1.6 mmol/L (0.7-2.1) D 08/17/16 15:50 Mixed VBG pCO2 45 mmHg (40-44) H 08/18/16 05:05 Mixed VBG pO2 71 mmHg (35-40) H 08/18/16 05:05 Total O2 Concentration 40.0 LITERS 08/16/16 13:25 O2 Concentration % 40 % (0-100) 08/15/16 04:10 Respiration Rate Cancelled 08/14/16 21:30 Actual Respiration Rate 17 08/16/16 13:25 Set Respiration Rate 12 08/15/16 04:10 SIMV YES 08/15/16 04:10 Assist Control Cancelled 08/14/16 21:30 Vent Rate Cancelled 08/14/16 21:30 Inspiratory Time Cancelled 08/14/16 21:30 Expiratory Pressure Cancelled 08/14/16 21:30 Tidal Volume 550 08/15/16 04:10 End Tidal CO2 42 08/16/16 13:25 PEEP 5 08/16/16 13:25 Inspiratory Pressure Cancelled 08/14/16 21:30 Peak Inspir Pressure Cancelled 08/14/16 21:30 Pressure Support 7 08/16/16 13:25 Pressure Control Cancelled 08/14/16 21:30 CPAP YES 08/16/16 13:25 BiPAP Cancelled 08/14/16 21:30 Mode BiPAP Cancelled 08/14/16 21:30 Inspir/Expir Ratio Cancelled 08/14/16 21:30 Turbidity Cancelled 08/14/16 15:15 Sodium 143 mEq/L (134-144) 08/18/16 05:05 Potassium 3.5 mEq/L (3.5-5.2) 08/18/16 05:05 Chloride 112 mEq/L (97-110) H 08/18/16 05:05 Carbon Dioxide 19 mEq/l (22-31) L 08/18/16 05:05 Bicarbonate 15 mEq/L (22-26) L 08/17/16 20:30 Anion Gap 12 mEq/L (8-16) 08/18/16 05:05 BUN 28 mg/dL (7-23) H 08/18/16 05:05 Creatinine 2.2 mg/dL (0.6-1.0) H 08/18/16 05:05 Estimated GFR 21 08/18/16 05:05 Glucose 135 mg/dL (70-100) H 08/18/16 05:05 POC Glucose 126 mg/dL (70-100) H 08/18/16 11:16 Calcium 7.6 mg/dL (8.5-10.4) L 08/18/16 05:05 Phosphorus 3.9 mg/dL (2.5-4.5) 08/18/16 05:05 Magnesium 1.4 mg/dL (1.6-2.3) L 08/18/16 05:05 Total Bilirubin 0.9 mg/dL (0.1-1.4) 08/17/16 13:45 Conjugated Bilirubin 0.7 mg/dL (0.0-0.5) H 08/17/16 13:45 Unconjugated Bilirubin 0.2 mg/dL (0.0-1.1) 08/17/16 13:45 AST 61 IU/L (14-46) H 08/17/16 13:45 ALT 30 IU/L (9-52) 08/17/16 13:45 Alkaline Phosphatase 111 IU/L (38-126) 08/17/16 13:45 Lactate Dehydrogenase 483 IU/L (313-618) 08/14/16 21:30 Troponin I 10.300 ng/mL (0-0.034) H 08/18/16 08:10 NT-Pro-B Natriuret Pep 29446 pg/mL (0-450) H 08/17/16 15:50 Total Protein 6.3 g/dL (6.3-8.2) 08/17/16 13:45 Albumin 3.4 g/dL (3.5-5.0) L 08/17/16 13:45 Triglycerides 108 mg/dL (35-135) 08/15/16 03:51 Cholesterol 87 mg/dL (140-220) L 08/15/16 03:51 Cholesterol Risk Factr 0.5 (0.2-1.0) 08/15/16 03:51 LDL Cholesterol, Calc 38 mg/dL (80-100) L 08/15/16 03:51 LDL Risk Factor 0.5 (0.2-1.0) 08/15/16 03:51 VLDL Cholesterol 21 mg/dL (8-25) 08/15/16 03:51 Non-HDL Cholesterol 59 mg/dL (90-129) L 08/15/16 03:51 HDL Cholesterol 28 mg/dL (40-85) L 08/15/16 03:51 LDL/HDL Ratio 1.36 RATIO (1.00-3.22) 08/15/16 03:51 Cholesterol/HDL Ratio 3.11 RATIO (1.00-4.44) 08/15/16 03:51 Specimen Hemolysis Cancelled 08/14/16 15:15 Urine Color YELLOW 08/14/16 17:40 Urine Appearance HAZY 08/14/16 17:40 Urine pH 5.0 (5.0-7.5) 08/14/16 17:40 Ur Specific [place] 1.016 (1.002-1.030) 08/14/16 17:40 Urine Protein 1+ (NEGATIVE) H 08/14/16 17:40 Urine Ketones NEGATIVE (NEGATIVE) 08/14/16 17:40 Urine Blood 1+ (NEGATIVE) H 08/14/16 17:40 Urine Nitrate NEGATIVE (NEGATIVE) 08/14/16 17:40 Urine Bilirubin NEGATIVE (NEGATIVE) 08/14/16 17:40 Urine Urobilinogen NEGATIVE EU (0.2-1.0) 08/14/16 17:40 Ur Leukocyte Esterase NEGATIVE (NEGATIVE) 08/14/16 17:40 Urine RBC 1-3 /hpf (0-3) 08/14/16 17:40 Urine WBC 1-3 /hpf (0-3) 08/14/16 17:40 Ur Epithelial Cells TRACE /lpf (NONE-1+) 08/14/16 17:40 Amorphous Sediment PRESENT /hpf (NONE-1+) 08/14/16 17:40 Urine Bacteria TRACE /hpf (NONE SEEN) H 08/14/16 17:40 Hyaline Casts 1-5 /lpf (0-1) 08/14/16 17:40 Urine Mucus TRACE /lpf (NONE-1+) 08/14/16 17:40 Ur Random Creatinine 117.9 mg/dL 08/14/16 17:40 U Random Total Protein 71 mg/dL 08/14/16 17:40 Ur Random Sodium 66 mEq/L (30-90) 08/14/16 17:40 Urine Glucose NEGATIVE (NEGATIVE) 08/14/16 17:40 Fluid pH Cancelled 08/15/16 16:31 Fluid [place] % 63 % 08/15/16 16:31 Fl Pathologist Review Bill ESPINAL MD 08/15/16 16:31 CSF Total Protein Cancelled 08/15/16 16:31 Pleural Fluid Source PLEURAL 08/15/16 16:31 Pleural Color STRAW (STRAW/YELL) 08/15/16 16:31 Pleural Appearance SL. HAZY (CLEAR) H 08/15/16 16:31 Pleural pH 7.0 (6.8-7.6) 08/15/16 16:31 Pleural WBC 161 /mm3 08/15/16 16:31 Pleural RBC 101 /MM3 08/15/16 16:31 Pleural Neutrophils 20 % 08/15/16 16:31 Pleural Lymphocytes % 17 % 08/15/16 16:31 Pleural Total Protein 3.5 g/dL 08/15/16 16:31 Pleural LDH 166 IU/L 08/15/16 16:31 Pleural Glucose 120 mg/dL (55-113) H 08/15/16 16:31 Stool Occult Bld Scrn NEGATIVE (NEGATIVE) 08/15/16 01:55 C. difficile Tox (PCR) POSITIVE (NEGATIVE) H 08/15/16 01:55 Ur Strep pneumoniae Ag Negative (Negative) 08/14/16 17:40 Patient ABO/Rh O NEGATIVE 08/17/16 21:10 Antibody Screen NEGATIVE 08/17/16 21:10 Crossmatch IS Only See Detail 08/17/16 21:10 Visualized and Interpreted EKG results: Yes EKG additional interpertation: Sinus rhythm. Nonspecific T-wave abnormalities in lateral leads. Low voltage. Telemetry: Sinus rhythm Echocardiogram: Left ventricular ejection fraction 25-30%. Regional wall motion abnormalities as described in the echocardiogram report. Moderate mitral regurgitation. At least moderate aortic stenosis. A/P Assessment: 1. Recent left [id number] amputation 2. Peripheral vascular disease. 3. Congestive heart failure with echocardiogram showing regional wall motion abnormalities consistent with multivessel coronary artery disease 4. Mitral regurgitation, moderate 5. Aortic stenosis, at least moderate - likely underestimated by low left ventricular ejection fraction 6. Renal insufficiency 7. Anemia Plan: 86-year-old female with above-noted findings. She presented with acute respiratory failure after left above knee amputation. Findings are consistent with congestive heart failure. 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 I had an extensive conversation with the patient with the RN present in the room. I discussed with the patient that in the ideal situation, we would like to obtain a coronary angiogram and right heart catheterization and also dobutamine echocardiogram to assess for coronary artery disease and severity of her aortic stenosis. She has renal insufficiency and this will potentially be worsened with any IV contrast use which may require the use of dialysis. She categorically states that she does not want any invasive therapies at this time. She understands that risk of mortality is high with untreated multivessel CAD in a diabetic. If she changes her mind, consideration to be given to dobutamine echocardiography and coronary angiography. At this time will manage her medically. I would like to continue her on low- dose dobutamine to improve her cardiac output to hopefully prevent worsening of renal function. I will hold off on using beta blockers at this time but they should be started after dobutamine has been weaned off. Given her renal insufficiency I am not going to start her on Dar inhibitors or ARB but will start her on low-dose hydralazine and nitrates. Thank you for the consultation. Dr. Val Chakraborty will be seeing the patient tomorrow. Case discussed with Dr. Chakraborty and Dr. Masood Berrios.
--- NOTE | 2016-08-18 13:41 | HOSPPROG ---
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 Doing well on miminal o2 currently. Volume overload contributing and will start lasix when HD more stable. # septic shock: likely combination of cardiac and presumably septic with e/o aspiration pna as well as c diff, abx as below, changed to dobutamine given tachycardia on NE # NSTEMI: with trop peaking at 14.6 yesterday and now trending down, repeat echo showing inferior/inferolateral hypokinesis as well as anteroseptal dyskinesis compared to prior. Cardiology consulted, discussed option of angio with patient which she is declining. Would be high risk given MAYI. Will manage medically. She is having no chest pain, on personal review of ecg ant-lat twi/ flattening noted that does not appear significantly changed # aspiration PNA: treating with zosyn/azithro/vanco, bilateral lobe infiltrates unchanged on personal review of repeat cxr # acute encephalopathy: largely resolved, still somewhat somnolent and in the setting of critical illness as above # mayi: in setting of septic shock as well as poor po intake and recent surgery and likely ischemic ATN. UOP had been adequate, but dropping off somewhat yesterday. Creatinine continues to trend up, monitoring closely, no indication for HD at this point but if UOP not picking up will consult renal. # agma: in setting of above, improved s/p bicarb gtt # c diff: not having significant diarrhea, on contact precautions and will begin oral vanco # acute on chronic systolic/ diastolic heart failure: with repeat echo showing EF 25-30% in setting of NSTEMI as above. Some volume overload in setting of chf as well as mayi, holding off on lasix given need for pressors currently. As above , consider renal consult if uop not improving. # anemia: slightly lower than baseline, monitoring # osteomyelits: corynebacterium, sp surgical revision of affected area, given shock, treating with vanco for now as above # DM, PVD # IP status, critically ill FC--discussed with patient, her son would be MDPOA however she states she currently can make her own decisions and would like to be FC, though she does not want interventions such as heart cath. Would need to discuss HD if that was needed. Reviewed with Dr. Berrios and multidisciplinary care team on rounds. Subjective: feels well other than somnolent, states she did not sleep well last night, denies chest pain, denies sob Objective: Vital Signs Temp Pulse Resp BP Pulse Ox 37.0 C 89 10 L 131/46 H 98 08/18/16 12:00 08/18/16 13:00 08/18/16 13:00 08/18/16 13:00 08/18/16 13:00 Microbiology 08/15/16 16:31 Gram Stain - Final Pleural Fluid - Aspirate Body Fluid Culture - Final 08/13/16 10:01 Gram Stain - Final Leg - Tissue 08/13/16 10:01 Gram Stain - Final Leg - Bone Laboratory Results 08/18/16 05:05 08/18/16 05:05 08/17/16 08/18/16 08/19/16 05:59 05:59 05:59 Intake Total 1742 2554 Output Total 500 130 Balance 1242 2424 PT 18.2 SEC (12.0-15.0) H 08/17/16 13:45 INR 1.51 (0.83-1.16) H 08/17/16 13:45 awake alert anicteric poor dentition, op clear rrr no mrg coarse bs dec at bases soft nt nd ble bka, left bandaged warm dry well perfused oriented - Time Spent With Patient Time Spent with Patient: greater than 35 minutes Time Spent with Patient: Greater than 35 minutes spent on this patients care, greater than 50% of time spent counseling, educating, and coordinating care regarding the above mentioned plan. ICD10 Worksheet Patient Problems: Problems Problem Status Onset C. 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
[2016-08-18] MEDS: ISOSORBIDE DINITRATE 20 MG TAB PO SCH (14:25)
[2016-08-18] MEDS: VANCOMYCIN 750 MG in D5W 150 ML IV SCH (15:52)
[2016-08-18] MEDS: hydrALAZINE 10 MG TAB PO SCH ×2 (15:52→22:24)
[2016-08-18] MEDS: PATCH REMOVAL 1 EA PATCH TD SCH (20:21)
[2016-08-18] MEDS: DOBUTamine/DEXTROSE 250 ML IV SCH (20:21)
[2016-08-18] MEDS: GABAPENTIN 300 MG CAP PO SCH (20:21)
[2016-08-19] MEDS: HYDROmorphONE/DILAUDID 2 MG TAB PO PRN (00:08)
[2016-08-19] MEDS: PIPERACILLIN/TAZO 2.25 GM/DEX 50 ML IV SCH ×4 (00:08→18:02)
[2016-08-19 05:41] LABS: % IMMATURE GRANULYOCYTES 0.5 % (0.0-1.1); ABSOLUTE IMMATURE GRANULOCYTES 0.06 10^3/uL (0.00-0.10); ABSOLUTE NRBC COUNT 0.02 10^3/uL (0-0.01); ADD DIFF? NO; ADD MORPH? NO; ADD SCAN? NO; ATYPICAL LYMPHOCYTE FLAG 10 (0-99); FRAGMENT RBC FLAG 0 (0-99); HEMATOCRIT 26.9 % (38.0-47.0); HEMOGLOBIN 8.5 g/dL (12.6-16.3); LEFT SHIFT FLG 10 (0-99); LIPEMIA HEMOLYSIS FLAG 80 (0-99); MEAN CELL HEMOGLOBIN 30.2 pg (27.9-34.1); MEAN CELL HEMOGLOBIN CONCENTR. 31.6 g/dL (32.4-36.7); MEAN CELL VOLUME 95.7 fL (81.5-99.8); MEAN PLATELET VOLUME 11.4 fL (8.7-11.7); NRBC-AUTO% 0.2 % (0.0-0.2); PLATELET CLUMPS FLAG 10 (0-99); PLATELET COUNT 160 10^3/uL (150-400); RED BLOOD CELL COUNT 2.81 10^6/uL (4.18-5.33); RED CELL DISTRIBUTION WIDTH 17.2 % (11.5-15.2)
[2016-08-19 05:59] LABS: ANION GAP 14 mEq/L (8-16); CALCIUM 7.9 mg/dL (8.5-10.4); CARBON DIOXIDE 16 mEq/l (22-31); CHLORIDE 110 mEq/L (97-110); GLOMERULAR FILTRATION RATE 15; GLUCOSE 181 mg/dL (70-100); MAGNESIUM 2.1 mg/dL (1.6-2.3); POTASSIUM 3.4 mEq/L (3.5-5.2); SODIUM 140 mEq/L (134-144)
[2016-08-19] MEDS: VANCOMYCIN 125 MG/2.5 ML UDL PO SCH ×4 (06:02→20:46)
[2016-08-19] MEDS: HEPARIN 5,000 UNIT/0.5 ML SYR SC SCH ×3 (06:02→20:46)
[2016-08-19] MEDS: ISOSORBIDE DINITRATE 20 MG TAB PO SCH (06:02)
[2016-08-19] MEDS: LEVOTHYROXINE 112 MCG TAB PO SCH (06:02)
[2016-08-19] MEDS: LIDOCAINE 5% 1 EA PATCH TD SCH (07:47)
[2016-08-19] MEDS: CHLORHEXIDINE GLUCONATE 15 ML UDL PO SCH ×2 (07:48→20:46)
[2016-08-19] MEDS: INSULIN LISPRO 100 UNIT/ML SC SCH ×3 (07:48→18:03)
[2016-08-19] MEDS: ESCITALOPRAM OXALATE 10 MG TAB PO SCH (08:34)
[2016-08-19] MEDS: SENNOSIDES/DOCUSATE SODIUM TAB PO SCH ×2 (08:34→20:46)
[2016-08-19] MEDS: GABAPENTIN 100 MG CAP PO SCH (08:34)
[2016-08-19] MEDS: ASPIRIN 325 MG TAB PO SCH (08:34)
[2016-08-19] MEDS: FAMOTIDINE 20 MG TAB PO SCH (08:34)
[2016-08-19] MEDS: AZITHROMYCIN IV 500 MG in D5W 250 ML IV SCH (08:34)
[2016-08-19] MEDS: CHOLESTYRAMINE/SUCROSE 4 GM PKT PO SCH ×2 (08:35→21:16)
--- NOTE | 2016-08-19 09:31 | PDINTPN ---
Conservator Artifacts Progress Note Assessment/Plan: Assessment/Plan: * Resp-stable * Lg Right Pleural effusion-improved after thoracentesis * Hypotension-likely cardiac -now on dobutamine and levo * PTX-post tap. Stable/smaller * Anxiety-off precedex * CHF-Previous ECHO with EF of 42%. Current is reduced -no interventions per cards -treat medically * Acute renal failure-worsening * DM-BS okay * PVD * S/P revision of BKA * Cdif * Anemia * VTE proph * Stress ulcer proph * Dispo-consult palliative care Case discussed with RT and nursing Prognosis guarded Subjective: Awake and alert Objective: Vital Signs Temp Pulse Resp BP Pulse Ox 37.5 C 104 H 11 L 106/51 L 98 08/19/16 07:00 08/19/16 07:00 08/19/16 07:00 08/19/16 07:00 08/19/16 07:00 Microbiology 08/18/16 16:00 - Final Sputum, Expectorated 08/13/16 10:01 Gram Stain - Final Leg - Tissue 08/13/16 10:01 Gram Stain - Final Leg - Bone 08/15/16 16:31 Gram Stain - Final Pleural Fluid - Aspirate Body Fluid Culture - Final Laboratory Results 08/19/16 05:30 08/19/16 05:30 08/18/16 08/19/16 08/20/16 05:59 05:59 05:59 Intake Total 2554 2257 Output Total 130 220 Balance 2424 2037 PT 18.2 SEC (12.0-15.0) H 08/17/16 13:45 INR 1.51 (0.83-1.16) H 08/17/16 13:45 Laboratory Results 08/19/16 05:30 08/19/16 05:30 08/19/16 08/18/16 05:30 08:10 Calcium 7.9 mg/dL L mg/dL (8.5 - 10.4) Phosphorus 3.9 mg/dL mg/dL (2.5 - 4.5) Magnesium 2.1 mg/dL mg/dL (1.6 - 2.3) Troponin I 10.300 ng/mL H ng/mL (0 - 0.034) 08/13/16 10:01 Gram Stain - Final Leg - Tissue Anaerobic Culture - Preliminary Corynebacterium Striatum 08/13/16 10:01 Gram Stain - Final Leg - Bone Anaerobic Culture - Preliminary Corynebacterium Striatum Physical Exam - Physical Exam General Appearance: alert, no apparent distress EENT: PERRL/EOMI, normal ENT inspection Neck: non-tender, full range of motion Respiratory: crackles (few), No stridor, No wheezing Cardiac/Chest: normal peripheral pulses, regular rate, rhythm, systolic murmur Abdomen: normal bowel sounds, non-tender, soft Pelvic Exam: deferred Rectal: deferred Back: Normal inspection Skin: normal color, warm/dry Neuro/Psych: no motor/sensory deficits, alert, normal mood/affect, oriented x 3 ICD10 Worksheet Patient Problems: Problems Problem Status Onset C. 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
[2016-08-19] MEDS ORDERED: NOREPINEPHRINE BITARTRATE 16 MG in D5W 250 ML IV SCH (10:00)
[2016-08-19] MEDS: hydrALAZINE 10 MG TAB PO SCH (10:17)
--- NOTE | 2016-08-19 11:43 | HOSPPROG ---
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 Doing well on miminal o2 currently. Volume overload contributing and will start lasix when HD more stable. # septic/cardiogenic shock: likely combination of cardiac and presumably septic with e/o aspiration pna as well as c diff, abx as below, still on dobutamine and LE unable to titrate off so far # NSTEMI: with trop peaking at 14.6, new wall motion abnormalities and worsening CHF as below, no chest pain, no intervention planned given worsening renal function and chronic comorbidities. 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 Holding hydralazine/isordil given continued need for pressor support. Poor prognosis. # chris: continues to worsen, patient now oliguric. Reviewed with patient and her son and they understand that HD would not be a good plan for her given the other issues and her overall health. Continue pressors and current support but will not proceed to HD if worsens. # aspiration PNA: treating with zosyn/azithro/vanco, bilateral lobe infiltrates unchanged on personal review of repeat cxr # acute encephalopathy: largely resolved, still somewhat somnolent and in the setting of critical illness as above # agma: in setting of above, improved s/p bicarb gtt # c diff: not having significant diarrhea, on contact precautions, continue oral vanc now day 4 # anemia: slightly lower than baseline, monitoring # osteomyelits: corynebacterium, sp surgical revision of affected area, had been treating with IV vanc as well but will dc given no MRSA on cultures # DM, PVD # IP status, critically ill DNR--long discussion with patient and her son Mario present at bedside, explained that CPR would not likely change her course if she were to get worse, changed code status to DNR. If no significant improvement in the next 1-2 days will need to discuss further that comfort care likely appropriate, she is not quite ready for that at this time. Reviewed with Dr. Berrios and multidisciplinary care team on rounds. Subjective: no significant overnight events, patient remains on 2 pressors, she has no acute complaints, made 40ml of urine overnight Objective: Vital Signs Temp Pulse Resp BP Pulse Ox 37.5 C 109 H 17 117/54 L 94 08/19/16 07:00 08/19/16 10:00 08/19/16 10:00 08/19/16 10:00 08/19/16 10:00 Microbiology 08/18/16 16:00 - Final Sputum, Expectorated 08/13/16 10:01 Gram Stain - Final Leg - Tissue 08/13/16 10:01 Gram Stain - Final Leg - Bone 08/15/16 16:31 Gram Stain - Final Pleural Fluid - Aspirate Body Fluid Culture - Final Laboratory Results 08/19/16 05:30 08/19/16 05:30 08/18/16 08/19/16 08/20/16 05:59 05:59 05:59 Intake Total 2554 2257 Output Total 130 220 Balance 2424 2037 PT 18.2 SEC (12.0-15.0) H 08/17/16 13:45 INR 1.51 (0.83-1.16) H 08/17/16 13:45 awake alert anicteric poor dentition, op clear rrr no mrg coarse bs dec at bases soft nt nd ble bka, left bandaged warm dry well perfused oriented - Time Spent With Patient Time Spent with Patient: greater than 35 minutes Time Spent with Patient: Greater than 35 minutes spent on this patients care, greater than 50% of time spent counseling, educating, and coordinating care regarding the above mentioned plan. ICD10 Worksheet Patient Problems: Problems Problem Status Onset C. 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
[2016-08-19] MEDS: DOBUTamine/DEXTROSE 250 ML IV SCH (11:53)
[2016-08-19] MEDS ORDERED: PROTOCOL POTASSIUM 1 DOSE MISC PRN (12:18)
[2016-08-19] MEDS ORDERED: ATORVASTATIN CALCIUM 20 MG TAB PO SCH (12:30)
[2016-08-19 12:42] LABS: POTASSIUM 3.6 mEq/L (3.5-5.2)
[2016-08-19] MEDS ORDERED: D50W 25 GM/50 ML SYR IVP PRN (13:08)
--- NOTE | 2016-08-19 13:18 | PDCARPN ---
Cardiology Progress Note Assessment/Plan: Assessment/plan: 86-year-old female with diabetes, valvular heart disease admitted on August 13 with osteomyelitis of a previous BKA of left lower extremity. 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 Her course has been complicated by hypoxic respiratory failure, acute renal failure, systolic heart failure and non ST elevation MD. Peak troponin 14.6. She is now on 2 pressors to maintain blood pressure and has had no urine output. 1. Non ST elevation MD: She is on aspirin. Unable to tolerate beta-blockers yet due to hypotension. Unable to start MELANIE inhibitor due to hypotension and fluctuating renal function. Not a candidate for statin given her LDL of 38. please see Dr. Mansfield note dated 08/18. He and the patient did have an extended discussion which I reviewed again with the patient today. She does not want invasive procedures including coronary angiogram. I do think this is reasonable in the setting of her worsening renal function. The chance that she would require dialysis after an intravenous contrast load is quite high. Continue medical management as able. now that her troponin has peaked, will not consider heparin therapy. 2. Cardiomyopathy and systolic heart failure. Her recent BNP was 62,000. she is on very little oxygen at this point, but may require diuresis. As above , currently not able to start beta-blockers or MELANIE inhibitors. The etiology for cardiomyopathy is almost certainly multi-vessel disease based on the appearance of her echocardiogram in multiple cardiac risk factors. 3. Shock: this appears to be likely cardiogenic. Wean dobutamine. Continue levophed. Add dopamine if needed for MAP <90. Overall poor prognosis 4. ARF: worsening. Patient has stated she does not want dialysis 5. Valvular heart disease: at least moderate and perhaps severe with moderate MR; complicates her clinical picture. Dopa may work better than dobuta 6. AKA/osteomyelitis: per surgery/critical care 7. DM: on insulin 8. C diff 9. Anemia: no active bleeding 08/19/16 13:23 Subjective: Jyothi has no pain. She denies angina or dyspnea. She has no abdominal pain. Reviewed/Discussed With: other (Dr. Berrios) Objective: Vital Signs (8 Hrs) Temp Pulse Resp BP Pulse Ox 08/19/16 12:00 103 H 12 120/50 L 92 08/19/16 11:00 37.6 C 102 H 13 128/55 H 92 08/19/16 10:00 109 H 17 117/54 L 94 08/19/16 09:00 105 H 15 96/68 L 93 08/19/16 08:00 104 H 14 88/44 L 92 08/19/16 07:00 37.5 C 104 H 11 L 106/51 L 98 08/19/16 06:02 105/42 L 08/19/16 06:00 103 H 18 105/42 L 999 H Intake/Output (24 Hrs) 08/18/16 08/19/16 08/20/16 05:59 05:59 05:59 Intake Total 2554 2257 Output Total 130 220 Balance 2424 2037 Intake: Oral (ml) 200 320 IV Intake (ml) 1653 1447 IV Infused (ml) 351 490 DOBUTamine/DEXTROSE 250 33 141 ml @ Titrate IV CONT LIZBETH Rx#:[id number] Norepinephrine Bitartrate 318 349 4 mg In D5w 500 ml @ Titrate IV CONT LIZBETH Rx#: [id number] Packed Red Blood Cells ( 350 ml) Output: Urine (ml) 130 220 Catheter 130 220 Other: Weight 74.4 kg 76.6 kg Intake Quantity No Sufficient Number of Stools Catheter 1 1 No acute distress. JVP is 12 cm of water. Regular rhythm with occasional ectopy. 2/6 early systolic ejection murmur at the base. No S3 or S4. No rub. Lungs clear anteriorly and laterally. Abdomen soft nontender nondistended without bruits masses or hepatosplenomegaly. Bilateral [id number]-cfa-ygyl amputation. Hyde in place with no urine. Result Diagrams: 08/19/16 05:30 08/19/16 12:00 Cardiac Labs: Cardiac Lab Results (72 Hrs) 08/18/16 08/18/16 08/17/16 08:10 01:00 18:41 Troponin I 10.300 H 14.600 H 11.800 H 08/17/16 15:50 Troponin I 10.100 H EKG: Serial tracings reviewed: Sinus rhythm. In the 2 most recent tracings there is subtle inferolateral ST depression. Telemetry: Sinus rhythm with occasional PVCs Echocardiogram: reviewed: Severely reduced left ventricular systolic function with an ejection fraction of 20-25%. Anterolateral and inferolateral hypokinesis. Moderate aortic stenosis which may be underestimated in the setting of severe cardiomyopathy. Moderate mitral regurgitation. ICD10 Worksheet Patient Problems: Problems Problem Status Onset C. 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
--- NOTE | 2016-08-19 15:35 | SOAPPROG ---
SOAP Progress Note Assessment/Plan: Assessment: s/p L BKA Multiple other problems Was made DNR today S: Asking questions about length of stump Incision with minor leakage at anterior aspect Redressed No signs of infection Plan: 08/19/16 15:34 Objective: Vital Signs Temp Pulse Resp BP Pulse Ox 37.6 C 84 12 99/54 L 94 08/19/16 13:00 08/19/16 13:00 08/19/16 13:00 08/19/16 13:00 08/19/16 13:00 Microbiology 08/13/16 10:01 Gram Stain - Final Leg - Tissue 08/13/16 10:01 Gram Stain - Final Leg - Bone 08/18/16 16:00 - Final Sputum, Expectorated 08/15/16 16:31 Gram Stain - Final Pleural Fluid - Aspirate Body Fluid Culture - Final Laboratory Results 08/19/16 05:30 08/19/16 12:00 08/18/16 08/19/16 08/20/16 05:59 05:59 05:59 Intake Total 2554 2257 Output Total 130 220 Balance 2424 2037 PT 18.2 SEC (12.0-15.0) H 08/17/16 13:45 INR 1.51 (0.83-1.16) H 08/17/16 13:45 ICD10 Worksheet Patient Problems: Problems Problem Status Onset C. 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
[2016-08-19] MEDS: GABAPENTIN 300 MG CAP PO SCH (20:46)
[2016-08-19] MEDS: PATCH REMOVAL 1 EA PATCH TD SCH (21:16)
[2016-08-20] MEDS: PIPERACILLIN/TAZO 2.25 GM/DEX 50 ML IV SCH ×3 (00:28→14:19)
[2016-08-20 05:33] LABS: % IMMATURE GRANULYOCYTES 0.6 % (0.0-1.1); ABSOLUTE IMMATURE GRANULOCYTES 0.06 10^3/uL (0.00-0.10); ABSOLUTE NRBC COUNT 0.07 10^3/uL (0-0.01); ADD DIFF? NO; ADD MORPH? NO; ADD SCAN? NO; ATYPICAL LYMPHOCYTE FLAG 20 (0-99); FRAGMENT RBC FLAG 0 (0-99); HEMATOCRIT 25.4 % (38.0-47.0); LEFT SHIFT FLG 10 (0-99); LIPEMIA HEMOLYSIS FLAG 80 (0-99); MEAN CELL HEMOGLOBIN 29.9 pg (27.9-34.1); MEAN CELL HEMOGLOBIN CONCENTR. 31.5 g/dL (32.4-36.7); MEAN CELL VOLUME 94.8 fL (81.5-99.8); MEAN PLATELET VOLUME 10.8 fL (8.7-11.7); NRBC-AUTO% 0.7 % (0.0-0.2); PLATELET CLUMPS FLAG 0 (0-99); PLATELET COUNT 190 10^3/uL (150-400); RED BLOOD CELL COUNT 2.68 10^6/uL (4.18-5.33); RED CELL DISTRIBUTION WIDTH 16.7 % (11.5-15.2)
[2016-08-20] MEDS: VANCOMYCIN 125 MG/2.5 ML UDL PO SCH ×4 (05:43→21:26)
[2016-08-20] MEDS: LEVOTHYROXINE 112 MCG TAB PO SCH (05:43)
[2016-08-20] MEDS: HEPARIN 5,000 UNIT/0.5 ML SYR SC SCH ×2 (05:43→14:20)
[2016-08-20 05:51] LABS: ANION GAP 14 mEq/L (8-16); CARBON DIOXIDE 17 mEq/l (22-31); CHLORIDE 108 mEq/L (97-110); GLOMERULAR FILTRATION RATE 11; GLUCOSE 131 mg/dL (70-100); POTASSIUM 3.9 mEq/L (3.5-5.2); SODIUM 139 mEq/L (134-144)
[2016-08-20 05:56] LABS: VANCOMYCIN RANDOM LEVEL 12.9 mcg/mL (0.0-40.0)
[2016-08-20] MEDS: CHOLESTYRAMINE/SUCROSE 4 GM PKT PO SCH (09:02)
[2016-08-20] MEDS: INSULIN LISPRO 100 UNIT/ML SC SCH ×2 (09:06→12:31)
[2016-08-20] MEDS: FAMOTIDINE 20 MG TAB PO SCH (09:07)
[2016-08-20] MEDS: ESCITALOPRAM OXALATE 10 MG TAB PO SCH (09:07)
[2016-08-20] MEDS: SENNOSIDES/DOCUSATE SODIUM TAB PO SCH ×2 (09:08→21:26)
[2016-08-20] MEDS: ASPIRIN 325 MG TAB PO SCH (09:08)
[2016-08-20] MEDS: GABAPENTIN 100 MG CAP PO SCH (09:08)
[2016-08-20] MEDS: AZITHROMYCIN IV 500 MG in D5W 250 ML IV SCH (09:08)
[2016-08-20] MEDS: CHLORHEXIDINE GLUCONATE 15 ML UDL PO SCH (09:09)
[2016-08-20] MEDS: LIDOCAINE 5% 1 EA PATCH TD SCH (09:10)
--- NOTE | 2016-08-20 09:54 | SOAPPROG ---
SOAP Progress Note Assessment/Plan: Assessment/Plan: 86 yo female s/p left BKA revision with worsening MAYI in setting CRI, acute hypoxic respiratory failure off vent, CDiff contact precautions Dressing changed today. Continue dressing changes every 1-2 days. Palliative care to see patient today. Appreciate business office specialist and hospitalist input/care. S: slept well last night. pain in left leg still present but decreased. friendly , conversational mood albeit slightly confused. PE GEN: awake, alert CHEST: slightly decreased BS and few crackles on right COR: rrr ABD: soft, non-tender EXT: stapled incision CDI, anterior aspect has clotted serosanguineous drainage but unchanged from previous visit, warm to touch but no sign of infection, posterior flaps viable 08/20/16 10:03 08/20/16 10:06 Objective: Vital Signs Temp Pulse Resp BP Pulse Ox 37.3 C 75 17 92/55 L 99 08/20/16 08:00 08/20/16 09:00 08/20/16 09:00 08/20/16 09:00 08/20/16 09:00 Microbiology 08/14/16 20:10 Blood Culture - Final Blood 08/14/16 20:30 Blood Culture - Final Blood 08/13/16 10:01 Gram Stain - Final Leg - Tissue 08/13/16 10:01 Gram Stain - Final Leg - Bone 08/18/16 16:00 - Final Sputum, Expectorated Laboratory Results 08/20/16 05:15 08/20/16 05:15 08/19/16 08/20/16 08/21/16 05:59 05:59 05:59 Intake Total 2257 1288 Output Total 220 25 Balance 2037 1263 PT 18.2 SEC (12.0-15.0) H 08/17/16 13:45 INR 1.51 (0.83-1.16) H 08/17/16 13:45 ICD10 Worksheet Patient Problems: Problems Problem Status Onset C. 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
[2016-08-20] MEDS ORDERED: PIPERACILLIN/TAZO 2.25 GM/DEX 50 ML IV SCH (14:00)
[2016-08-20] MEDS ORDERED: LORazepam 2 MG/ML INJ IVP PRN (14:57)
[2016-08-20] MEDS ORDERED: LORazepam 1 MG TAB PO PRN (14:57)
[2016-08-20] MEDS ORDERED: morphINE 10 MG/0.5 ML UDSYR PO PRN (14:57)
--- NOTE | 2016-08-20 15:38 | PDINTPN ---
Professional [facility] Progress Note Assessment/Plan: Assessment/plan: 86 F with bilateral BKA, admitted for revision of left complicated by ischemic cardiomyopathy and EF 25-30%, worsening MAYI, pleural effusion s/p tap complicated by PTX. * MAYI probably from hypotension, though pressor requirement improving. Given rate of rise of creatinine and lack of nay meaningful urine output, I suspect this will continue to worsen. She had a discussion with her son present ( reported) concerning the need for HD which she declined appropriately. CM to contact son today and report worsening function and likely need for comfort care /hospice. I don't think it is likely she can return to her previous living situation, since she remains on pressors. * NSTEMI- medical management. * PTX- stable. Last CXR 08/18, but no clinical deterioration. Not a contributor to hypotension * C diff * BKA revision * DM * CHF with EF 25-30%. Agree with titrate pressors to SBP>90 Subjective: no complaints Objective: Vital Signs Temp Pulse Resp BP Pulse Ox 37.4 C 73 17 116/59 L 99 08/20/16 14:00 08/20/16 14:00 08/20/16 14:00 08/20/16 14:00 08/20/16 14:00 Microbiology 08/18/16 16:00 - Final Sputum, Expectorated Sputum Culture - Final [place] Albicans 08/13/16 10:01 Gram Stain - Final Leg - Tissue Anaerobic Culture - Final Corynebacterium Striatum 08/13/16 10:01 Gram Stain - Final Leg - Bone 08/14/16 20:10 Blood Culture - Final Blood 08/14/16 20:30 Blood Culture - Final Blood Laboratory Results 08/20/16 05:15 08/20/16 05:15 08/19/16 08/20/16 08/21/16 05:59 05:59 05:59 Intake Total 2257 1288 Output Total 220 25 Balance 2037 1263 PT 18.2 SEC (12.0-15.0) H 08/17/16 13:45 INR 1.51 (0.83-1.16) H 08/17/16 13:45 Physical Exam - Physical Exam General Appearance: alert, no apparent distress, other (mild intermittent confusion) EENT: PERRL/EOMI Neck: supple Respiratory: lungs clear, normal breath sounds, No respiratory distress Cardiac/Chest: regular rate, rhythm, No edema Abdomen: normal bowel sounds, non-tender, soft Skin: normal color, warm/dry Lymphatic: no adenopathy Extremities: non-tender, No pedal edema Neuro/Psych: alert, normal mood/affect ICD10 Worksheet Patient Problems: Problems Problem Status Onset C. 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
--- NOTE | 2016-08-20 15:55 | HOSPPROG ---
Hospitalist Progress Note Assessment/Plan: * Osteomyelitis of stump s/p BKA revision * Acute renal failure - now complete anuria -acute dialysis indicated -I spoke at length with son - he is clear regarding refusal of dialysis and comfort care only * Metabolic encephalopathy -patient confused, hallucinating and not decisional * Shock - sepsis vs. cardiogenic -still requiring pressors * Acute respiratory failure due to aspiration PNA * Non - STEMI -cardiac cath declined -very high risk given worsening renal function * Cdiff -PO Vanco * Acute systolic CHF - EF 25% -difficult diuresis due to hypotension/shock * DM * PVD s/p angioplasty, bilateral BKA Prognosis poor. Dialysis refused. Son wishes to proceed with comfort care only. He desired discontinuation of all pressors, antibiotics, etc. He understands that she may pass at any time after these interventions ceased. If she stabilizes, we can consider DC back to her SNF with hospice in am. Subjective: Hallucinating. Things she is at a republican. Trying to pull a ball of fur out of my hair. Objective: Vital Signs Temp Pulse Resp BP Pulse Ox 37.4 C 73 17 116/59 L 99 08/20/16 14:00 08/20/16 14:00 08/20/16 14:00 08/20/16 14:00 08/20/16 14:00 Microbiology 08/18/16 16:00 - Final Sputum, Expectorated Sputum Culture - Final [place] Albicans 08/13/16 10:01 Gram Stain - Final Leg - Tissue Anaerobic Culture - Final Corynebacterium Striatum 08/13/16 10:01 Gram Stain - Final Leg - Bone 08/14/16 20:10 Blood Culture - Final Blood 08/14/16 20:30 Blood Culture - Final Blood Laboratory Results 08/20/16 05:15 08/20/16 05:15 08/19/16 08/20/16 08/21/16 05:59 05:59 05:59 Intake Total 2257 1288 Output Total 220 25 Balance 2037 1263 PT 18.2 SEC (12.0-15.0) H 08/17/16 13:45 INR 1.51 (0.83-1.16) H 08/17/16 13:45 - Physical Exam Constitutional: no apparent distress, appears nourished, not in pain Cardiovascular: regular rate and rhythym, no murmur, rub, or gallop Respiratory: no respiratory distress, no rales or rhonchi, clear to auscultation Gastrointestinal: normoactive bowel sounds, soft, non-tender abdomen, no palpable masses Skin: no rashes or abrasions, no fluctuance, no induration Neurologic: No AAOx3, No weakness, No numbness, No facial droop Psychiatric: encephalopathic, poor insight, poor judgement, poor memory, No interacting appropriately ICD10 Worksheet Patient Problems: Problems Problem Status Onset C. 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
[2016-08-20] MEDS: PATCH REMOVAL 1 EA PATCH TD SCH (21:25)
[2016-08-20] MEDS: GABAPENTIN 300 MG CAP PO SCH (21:25)
[2016-08-21] MEDS: LEVOTHYROXINE 112 MCG TAB PO SCH (06:15)
[2016-08-21] MEDS: VANCOMYCIN 125 MG/2.5 ML UDL PO SCH ×2 (06:15→12:08)
[2016-08-21 08:32] VITALS: BP 91/39; PULSE 66; RESP 10; TEMP 98.3; O2SAT 91
[2016-08-21] MEDS: GABAPENTIN 100 MG CAP PO SCH (10:06)
[2016-08-21] MEDS: SENNOSIDES/DOCUSATE SODIUM TAB PO SCH (10:07)
--- NOTE | 2016-08-21 11:31 | SOAPPROG ---
SOAP Progress Note Assessment/Plan: Assessment/plan: 86 y/o female s/p left BKA revision 07/05 to osteomyelitis. Acute respiratory failure. Acute on chronic renal failure. Appreciate internal medicine's care and arrangement for hospice. Per IM, son's wishes not to pursue dialysis. Suspect prolonged wound care unnecessary. S: awake, confused, pleasant, doesn't c/o surigcal pain for the first time. wants to be taken to the elevator. O: awake. ext: did not change bandage today. changed yesterday. 08/21/16 11:27 Objective: Vital Signs Temp Pulse Resp BP Pulse Ox 36.8 C 66 10 L 91/39 L 91 L 08/21/16 08:00 08/21/16 08:00 08/21/16 08:00 08/21/16 08:00 08/21/16 08:00 Microbiology 08/13/16 10:01 Gram Stain - Final Leg - Bone 08/18/16 16:00 - Final Sputum, Expectorated Sputum Culture - Final [place] Albicans 08/13/16 10:01 Gram Stain - Final Leg - Tissue Anaerobic Culture - Final Corynebacterium Striatum 08/14/16 20:10 Blood Culture - Final Blood 08/14/16 20:30 Blood Culture - Final Blood Laboratory Results 08/20/16 05:15 08/20/16 05:15 08/20/16 08/21/16 08/22/16 05:59 05:59 05:59 Intake Total 1288 723 Output Total 25 6 Balance 1263 717 PT 18.2 SEC (12.0-15.0) H 08/17/16 13:45 INR 1.51 (0.83-1.16) H 08/17/16 13:45 ICD10 Worksheet Patient Problems: Problems Problem Status Onset C. 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
[2016-08-21] MEDS: LIDOCAINE 5% 1 EA PATCH TD SCH (12:08)
--- NOTE | 2016-08-21 13:33 | PDIAF ---
- Diagnosis Diagnosis: acute renal failure, osteo of stump Code Status: Do Not Resuscitate - Medication Management Discharge Medications: Medications to Continue on Transfer Acetaminophen [Tylenol 325mg (*)] 650 mg PO Q4 PRN 08/09/16 [Last Taken 08/12/16 ] Famotidine [Pepcid] 40 mg PO DAILY PRN 08/09/16 [Last Taken 08/12/16] Lidocaine 2% Jelly [Lidocaine 2% Jelly (*)] 1 cyndi TP DAILY PRN 08/09/16 [Last Taken 08/12/16] Oxycodone HCl 5 mg PO Q4 PRN 08/09/16 [Last Taken 08/12/16] Promethazine HCl 25 mg PO Q6 PRN 08/09/16 [Last Taken 08/12/16] Promethazine HCl [Phenergan] 25 mg RC Q6 PRN 08/09/16 [Last Taken 08/12/16] Sennosides [Senokot] 1 each PO BID PRN 08/09/16 [Last Taken 08/12/16] traZODone [traZODONE 50MG (*)] 50 mg PO HS PRN 08/09/16 [Last Taken 08/12/16] Albuterol [Proventil Neb] 3 ml IH Q4-6PRN PRN 08/10/16 [Last Taken Unknown] Escitalopram Oxalate [Lexapro 10 MG] 10 mg PO DAILY 08/10/16 [Last Taken ] Gabapentin [Neurontin 300 MG (*)] 300 mg PO DAILY 08/10/16 [Last Taken 08/12/16] Gabapentin [Neurontin 300 MG (*)] 600 mg PO HS 08/10/16 [Last Taken 08/12/16] Herbals/Supplements -Info Only 1 ea PO DAILY 08/10/16 [Last Taken 08/12/16] Levothyroxine [Synthroid 112 mcg (*)] 112 mcg PO DAILY06 08/10/16 [Last Taken ] Collagenase [Santyl (*)] 1 cyndi TP DAILY PRN 08/13/16 [Last Taken Unknown] LORazepam [Ativan (*)] 0.5 - 2 mg PO Q2HRS PRN #0 tab 08/21/16 [Last Taken Unknown] Vancomycin [Vancocin Oral Liquid] 125 mg PO QID #0 udl 08/21/16 [Last Taken Unknown] morphINE [Roxanol 10 mg/0.5 ml oral soln (*)] 5 - 40 mg PO Q2HRS PRN #0 udsyr [Last Taken Unknown] Mcc Antibiotic Stop Date: 08/31/16 (PO vanco for cdiff) Discharge Medications: Refer to the Discharge Home Medication list for PRN reason. - Orders Diet Recommendation: no restrictions on diet Additional: hospice care - Follow Up Care Current Providers and Referrals: BASSEM SIBLEY [Primary Care Provider] -
--- NOTE | 2016-08-21 20:20 | GDS ---
[f rep st] DISCHARGE SUMMARY DISCHARGE DIAGNOSES: 1. Osteomyelitis of stump, status post below-knee amputation revision. 2. Acute renal failure with complete anuria. 3. Metabolic encephalopathy. 4. Septic versus cardiogenic shock. 5. Acute respiratory failure due to aspiration pneumonia. 6. Non-ST elevation myocardial infarction. 7. Clostridium difficile colitis. 8. Acute systolic congestive heart failure. Ejection fraction 25%. 9. Diabetes. 10. Peripheral vascular disease, status post previous angioplasty, now with bilateral below-knee am putation. HISTORY: The patient is an 86-year-old female with multiple medical problems. She presented with o steomyelitis of the stump of her previous BKA revision. She had a [facility] hospital course including a n ST-elevation CT with a troponin bump to 14. Cardiology felt she was in cardiogenic shock. She wa s going into renal failure. Cardiac catheterization was declined and also not recommended as this w ould worsen her renal function. She developed complete anuria. She developed hypotension and shock requiring pressors. She became very confused. I spoke at length with her son, who admits that her health has declined dramatically over the recent history. In order to save her from this event, it would require extensive prolonged hospitalizatio n, including acute dialysis, which he adamantly declined. He was very clear about his wishes to let nature take its course and transition her to comfort measures only. All medical interventions were ceased and she has temporally stabilized so the goal is to get her back to her half-way faci lity for ongoing hospice care. DISCHARGE MEDICATIONS: Please see computer record for full detailed list. NEW MEDICATIONS: Include: 1. Roxanol 5 to 40 mg p.o. q.2 hours as needed. 2. Ativan 0.5 to 2 mg p.o. q.2 hours as needed. 3. Vancomycin 125 mg p.o. 4 times a day. Can be continued to complete a course of therapy for C di fficile, although if she does lose her ability to take p.o. this can be discontinued. ADDITIONAL DISCHARGE INSTRUCTIONS: Return to half-way facility with hospice care. Greater than 30 minutes' time was spent arranging this discharge. Patient was seen and examined by me on the day of discharge. /[id number]/MODL
--- NOTE | 2016-09-25 05:15 | GOP ---
[f rep st] OPERATIVE REPORT DATE OF OPERATION: 08/13/2016 SURGEON: wOen Samuel MD SENIOR FINANCIAL REPORTING ANALYST: EDGAR Morales. PREOPERATIVE DIAGNOSIS: BK amputation stump, osteomyelitis and chronic open wound. POSTOPERATIVE DIAGNOSIS: BK amputation stump, osteomyelitis and chronic open wound. PROCEDURE PERFORMED: Left BK amputation revision with resection of tibia. FINDINGS: Patient was found to have ulcerated skin with some necrosis and poor blood flow, and min d appearing tibia. DESCRIPTION OF PROCEDURE: Patient was taken to the operating room, where she received satisfactory general endotracheal anesthesia. She was placed in supine position. Left leg was prepped and drape d in usual sterile fashion and elevated up. An elliptical skin incision was made through the previo us old incision creating an extension up around the open wound on the anterior tibia. Dissection ex tended down around the tip of the tibia into the posterior muscles. Tibia itself was then freed up with a periosteal elevator to well above the defect area. It was then divided with a power saw and removed. The anterior aspect of the tibia was beveled at 30 degrees and the edges were smoothed off with the rasp. The fibula was also isolated and resected for another 2 inches as well. Posterior flap was then mobilized as much as possible and brought up over the end of the tibia and the wound w as then closed in layers using 2-0 Vicryl for the interrupted sutures for the muscular layer, 2-0 Vi cryl interrupted sutures for subcutaneous layer and skin tre and 3-0 Prolene interrupted sutures for the skin. Wound was infiltrated with 0.5% Marcaine. There were no complications. Wound was d ressed with bulky dressing. She tolerated the procedure well, taken to the recovery room in good co ndition. Specimen was sent for both culture and path. She tolerated the procedure quite well. /[id number]/MODL
== END 2016-08-21 15:00 | DRG 474 ==
LOC: F3N 06:55 → EEVIPCON 08:30 → F3E 12:17 → F2N 08-14 16:00
PROVIDERS: ADMIT Surgery; ATTEND Surgery
PROC: 0Y6J0Z3 Detachment at Left Lower Leg, Low, Open Approach (ICD-10-PCS; principal; 2016-08-13 08:30)
PROC: 0BJL8ZZ Inspection of Left Lung, Via Natural or Artificial Opening Endoscopic (ICD-10-PCS; 2016-08-14)
PROC: 0BH18EZ Insertion of Endotracheal Airway into Trachea, Via Natural or Artificial Opening Endoscopic (ICD-10-PCS; 2016-08-14)
PROC: 5A1945Z Respiratory Ventilation, 24-96 Consecutive Hours (ICD-10-PCS; 2016-08-14)
PROC: 0BJK8ZZ Inspection of Right Lung, Via Natural or Artificial Opening Endoscopic (ICD-10-PCS; 2016-08-14)
PROC: 05HM33Z Insertion of Infusion Device into Right Internal Jugular Vein, Percutaneous Approach (ICD-10-PCS; 2016-08-14)
PROC: 0W993ZZ Drainage of Right Pleural Cavity, Percutaneous Approach (ICD-10-PCS; 2016-08-15)
DX: T87.44 Infection of amputation stump, left lower extremity (principal); G93.41 Metabolic encephalopathy; J96.21 Acute and chronic respiratory failure with hypoxia; J69.0 Pneumonitis due to inhalation of food and vomit; I50.21 Acute systolic (congestive) heart failure; I21.4 Non-ST elevation (NSTEMI) myocardial infarction; M86.162 Other acute osteomyelitis, left tibia and fibula; N17.8 Other acute kidney failure; E87.2 Acidosis; A04.7 Enterocolitis due to Clostridium difficile; J90 Pleural effusion, not elsewhere classified; E11.51 Type 2 diabetes mellitus with diabetic peripheral angiopathy without gangrene; E87.5 Hyperkalemia; D50.9 Iron deficiency anemia, unspecified; I34.0 Nonrheumatic mitral (valve) insufficiency; Z89.612 Acquired absence of left leg above knee
CPT/HCPCS: 82947-QW; 97163-GP; 97167-GO; C1751; G8978-GP-CM; G8979-GP-CL; G8987-GO-CM; G8988-GO-CJ; J0330; J0456; J0690; J1170; J1250; J1815; J2250; J2310; J2405; J2543; J2704; J3010; J3370; P9021; P9047